=== PATIENT | female | born 1940 | race African-American/Black ===

== ENCOUNTER → 2020-10-27 08:54 | Outpatient (REF) | payer MEDICARE, OTHER, SELFPAY ==
--- NOTE | 2020-10-27 09:30 | CA_ITS ---
Transthoracic Echocardiogram Patient (Last, First, Middle): Shelley Graff A Gender: Female Date of : 1940 Age: 80 Procedure Date: 10/27/2020 Procedure Type: Transthoracic Echocardiogram Location: OP Height: 162.56 cm Weight: 44.45 kg BSA: 1.44 m2 Heart Rate: bpm BP: 132 / 72 mmHg Laboratory Secretary: Carl MD: Seferino Sandoval MD Green Jobs Trainer: Martínez Zhang MD Symptoms: PERICARDIAL EFFUSION Study Quality: Good ECG Rhythm: Sinus Conclusions: - 1. Normal LV systolic function with impaired relaxation filling pattern 2. Trivial aortic regurgitation and mild mitral regurgitation 3. Normal RV systolic pressure 4. No trivial pericardial effusion Findings Left Ventricle Normal left ventricular size, thickness, and systolic function. The visually estimated ejection fraction is between 60-65%. Spectral Doppler is indicative of an impaired relaxation filling pattern. E/E prime ratio is between 8 and 15 consistent with indeterminate filling pressures. Right Ventricle Normal right ventricular cavity size and systolic function. Atria Both atria are normal in size. There is no evidence of interatrial shunt. Aortic Valve There is mild calcification of the aortic valve. There is mild thickening of the aortic valve. There is no aortic valve stenosis. There is trace (trivial) aortic valve regurgitation. Mitral Valve There is mild anterior and posterior mitral leaflet thickening. There is mild mitral annular calcification. There is mild mitral valve regurgitation. There is no mitral valve stenosis. Pulmonic Valve The pulmonic valve was not well visualized. Tricuspid Valve Normal tricuspid valve structure. There is mild tricuspid valve regurgitation. The right ventricular systolic pressure is normal. The right ventricular systolic pressure is 35 mmHg. Normal right atrial pressure. There is no evidence of pulmonary hypertension. Great Vessels All visible segments of the aorta are normal in size. The pulmonary artery was not well visualized. Moderate plaque is seen in the sino tubular ridge. Venous The inferior vena cava is normal in size and collapses greater than 50% with inspiration. Pericardium/Pleural There is a trivial pericardial effusion. Prior Study Comparison No significant change compared to prior study dated: 10/23/2019. Measurements 2D Linear Measurements RVIDd: 2.81 RVIDd Index: 1.95 IVSd: 1.15 0.6-0.9/0.6-1.0 cm LVIDd: 4.10 3.9-5.3/4.2-5.9 cm LVIDd Index: 2.85 2.4-3.2/2.2-3.1 cm/m2 LVIDs: 2.20 2.0-3.6 cm LVPWd: 0.83 0.7-1.1 cm Ao Root: 2.60 2.1-3.5 cm LA Diam: 3.20 2.7-3.8/3.0-4.0 cm LAIDs Index: 2.22 1.5-2.3 cm/m2 LV Mass: 162.30 67-162/88-224 g LV Mass Index: 112.71 43-95/49-115 g/m2 LVOT Diam: 1.90 3.0+(-)1.3 cm 2D Systolic Function EF 4C: 55.10 >55% EF 2C: 63.80 >55% EF BiP: 61.30 >55% Mitral Valve MV Pk E: 0.57 MV PK A: 0.94 MV Decel Time: 277.00 E/A: 0.60 E'Lateral: 5.77 E'Medial: 3.59 E/E' Med: 16.00 E/E' Lat: 9.90 Aortic Valve AoV Pk Gurpreet: 1.68 AoV Mn Gurpreet: 1.18 AoV VTI: 0.34 AoV Pk Grad: 11.00 Aov Mn Grad: 6.00 RICKY Cont.VTI: 1.91 LVOT LVOT Pk Gurpreet: 1.02 LVOT Mn Gurpreet: 0.73 LVOT VTI: 0.23 LVOT Pk Grad: 4.00 LVOT Mn Grad: 2.00 LVOT Diam: 1.90 LVOT Area: 2.84 Diastolic Function MV Pk E: 0.57 MV Pk A: 0.94 E/A: 0.60 E'Medial: 3.59 E/E' Med: 16.00 E' Laterial: 5.77 E/E' Lat: 9.90 Right Ventricle TAPSE (mm): 20.00 TVS' Gurpreet: 11.10 Tricuspid Valve TR Pk Gurpreet: 2.85 TR Pk Grad: 32.00 RA Press: 3.00 RVSP: 35.00 Great Vessels Aorta Ao Root-2D: 2.60 2.0-3.7 cm Ao Asc: 3.00 2.1-3.4 cm Ao Arch: 2.00 Updated in Other Vendor System with Status of Final Martínez Zhang MD electronically signed on 10/28/2020 2:12:52 PM with status of Final
== END ==
LOC: HO.CARD 08:54
PROVIDERS: Visit Provider Internal Medicine
DX: I31.3 Pericardial effusion (noninflammatory) (principal)
CPT/HCPCS: 93306

== ENCOUNTER → 2020-11-05 10:34 | Outpatient (BNVA) | payer MEDICARE, OTHER, SELFPAY | PROVIDERS: PCP Physician Assistant Medical; Visit Provider Internal Medicine | DX: J44.9 Chronic obstructive pulmonary disease, unspecified (principal); R09.02 Hypoxemia; R91.8 Other nonspecific abnormal finding of lung field; Z85.118 Personal history of other malignant neoplasm of bronchus and lung | CPT/HCPCS: 99202 ==

== ENCOUNTER → 2020-11-11 08:22 | Outpatient (BNVA) | payer MEDICARE, OTHER, SELFPAY | PROVIDERS: PCP Internal Medicine; Referring Provider Physician Assistant Medical; Visit Provider Internal Medicine | DX: I25.10 Atherosclerotic heart disease of native coronary artery without angina pectoris (principal); I31.3 Pericardial effusion (noninflammatory); Z98.890 Other specified postprocedural states; Z86.79 Personal history of other diseases of the circulatory system | CPT/HCPCS: 93005; 99212 ==

== ENCOUNTER → 2020-11-16 09:59 | Outpatient (BNVA) | payer MEDICARE, OTHER, SELFPAY | PROVIDERS: PCP Internal Medicine; Visit Provider Internal Medicine ==

== ENCOUNTER 2020-12-02 07:44 | Outpatient (REF) | payer MEDICARE, OTHER, SELFPAY ==
[2020-12-02 08:33] LABS: Cholesterol 156 mg/dL; HDL Cholesterol 64 mg/dL; LDL Cholesterol Calculated 78 mg/dl; Triglycerides 70 mg/dL
== END 2020-12-02 07:45 | disposition home or self-care (01) ==
LOC: HO.LAB 07:44
PROVIDERS: PCP Physician Assistant Medical; Visit Provider Internal Medicine
DX: E78.5 Hyperlipidemia, unspecified (principal)
CPT/HCPCS: 36415; 80061

== ENCOUNTER → 2021-02-10 09:07 | Outpatient (BNVA) | payer MEDICARE, OTHER, SELFPAY | PROVIDERS: PCP Physician Assistant Medical; Visit Provider Internal Medicine | DX: J44.9 Chronic obstructive pulmonary disease, unspecified (principal); R91.8 Other nonspecific abnormal finding of lung field; R09.02 Hypoxemia; Z85.118 Personal history of other malignant neoplasm of bronchus and lung | CPT/HCPCS: 99212 ==

== ENCOUNTER → 2021-05-11 08:39 | Outpatient (BNVA) | payer MEDICARE, OTHER, SELFPAY | PROVIDERS: PCP Physician Assistant Medical; Referring Provider Physician Assistant Medical; Visit Provider Internal Medicine | DX: I25.10 Atherosclerotic heart disease of native coronary artery without angina pectoris (principal); I31.3 Pericardial effusion (noninflammatory); Z98.890 Other specified postprocedural states; Z86.79 Personal history of other diseases of the circulatory system | CPT/HCPCS: 99212 ==

== ENCOUNTER → 2021-06-14 08:55 | Outpatient (BNVA) | payer MEDICARE, OTHER, SELFPAY | PROVIDERS: PCP Physician Assistant Medical; Visit Provider Internal Medicine | DX: J44.9 Chronic obstructive pulmonary disease, unspecified (principal); R09.02 Hypoxemia; Z85.118 Personal history of other malignant neoplasm of bronchus and lung | CPT/HCPCS: 99212 ==

== ENCOUNTER 2021-10-09 11:06 | Emergency (ER) | payer MEDICARE, OTHER, SELFPAY ==
[2021-10-09 11:20] VITALS: BP 203/92; PULSE 93; RESP 16; O2SAT 99; BMI 18.5
--- NOTE | 2021-10-09 11:30 | PC.NURSE ---
Pt currently on 2L O2 [place]. In home oxygen supplier: [employer]. States home o2 generator is broken and will not have enough o2 to last throughout the weekend. EMS unable to contact [employer]. Respiratory aware and will contact [employer].
--- NOTE | 2021-10-09 11:31 | ED.GENADULT ---
HPI - General Adult General Chief complaint: General Medical Stated complaint: not feeling safe Time Seen by Provider: 10/09/21 11:31 Source: patient and EMS Mode of arrival: EMS Limitations: no limitations History of Present Illness HPI narrative: 80-year-old female came in by EMS after patient panicked and got anxious when her oxygen tank did a workup home today, patient is known COPD and lung malignancy, patient used 2 L of oxygen 24/7 have to oxygen tank at home and emergency small portable once, the tank did not deliver oxygen patient got anxious and panicked tried to call the company nobody answered because it's weekend did not know what to do called 911 who brought her to the hospital. patient in emergency room is calm, no acute distress, complaining of no shortness of breath or chest pain, patient stated that she is at her baseline get around at home. Related Data Home Medications Medication Instructions Recorded Confirmed aspirin 81 mg tablet,delayed 81 mg PO DAILY 11/05/20 05/11/21 release (Adult Aspirin Regimen) ferrous sulfate 325 mg (65 mg 325 mg PO DAILY 11/05/20 05/11/21 iron) tablet oxycodone-acetaminophen 7.5 mg-325 1 tab PO Q6H PRN 11/05/20 05/11/21 mg tablet albuterol sulfate 90 mcg/actuation 2 inh inhalation Q6H PRN 02/10/21 05/11/21 aerosol inhaler docusate sodium 100 mg capsule 100 mg PO BID PRN 02/10/21 05/11/21 Previous Rx's Medication Instructions Recorded alirocumab 75 mg/mL subcutaneous 75 mg subcut Q2W #7 mL 08/13/21 pen injector (Praluent Pen) Trelegy Ellipta 100 mcg-62.5 1 ea inhalation DAILY #180 ea 08/31/21 mcg-25 mcg powder for inhalation (bvwtnyisopu-wqkwaihmj-xgabgeip) albuterol sulfate 2.5 mg/3 mL 2.5 mg (3 mL) inhalation Q6H PRN 09/20/21 (0.083 %) solution for nebulization for wheezing #150 mL Allergies Allergy/AdvReac Type Severity Reaction Status Date / Time No Known Allergies Allergy Unknown NOT Verified 06/14/21 09:43 APPLICABLE Review of Systems Review of Systems: All other systems are reviewed and are negative Constitutional: Reports as per HPI and Reports no additional constitutional complaints Eyes: Reports as per HPI and Reports no additional eye complaints Reports system reviewed and no additional complaints, except as documented Cardiovascular: Reports as per HPI and Reports no additional cardiovascular complaints Respiratory: Reports as per HPI and Reports no additional respiratory complaints Gastrointestinal: Reports as per HPI and Reports no additional gastrointestinal complaints Genitourinary: Reports no additional female genitourinary complaints Musculoskeletal: Reports no additional musculoskeletal complaints Skin/Breast: Reports system reviewed and no additional complaints, except as docu Psychiatric: Reports no additional psychiatric complaints Endocrine: Reports no additional endocrine complaints Hematologic/Lymphatic: Reports no additional hematologic/lymphatic complaints Allergic/Immunologic: Reports no additional allergic/immunologic complaints Reports system reviewed and no additional complaints, except as documented and Reports Abnormal speech present FORMERLY [facility] Past Medical History Medical History COPD (chronic obstructive pulmonary disease) H/O malignant neoplasm of lung Hypoxemia Pulmonary nodules Surgical History Hx of mastectomy Family History Family History Father No problems noted. Mother CAD (coronary artery disease) Social History Social History Patient Tobacco Use Status: Former Tobacco user Years Smoked: 56 Advance Directives: No Advance Directives Information Provided: Yes Physical Exam ED Vital Signs: Vital Signs - 24 hr 10/09/21 11:20 Pulse Rate 93 Respiratory Rate 16 Blood Pressure 203/92 H Pulse Oximetry 99 Oxygen Delivery Method Nasal Cannula BMI result Body Mass Index 18.5 Vital signs have been reviewed as appeared to be correct. Blood pressure elevated. Heart rate normal. Respiration rate normal. Temperature normal. Oxygen saturation normal. Appearance: Alert. Oriented X3. No acute distress, thin built female Head: Normal external exam. Normocephalic. Atraumatic. No Mota signs noted. No raccoon eyes noted Eyes: PERRLA. EOMI. Conjunctiva and sclera normal. Eyelids normal. ENT: TM's Normal. Pharynx normal. Uvula midline. Moist mucous membranes. No trismus noted. No drooling noted. No muffled voice noted. Neck: Normal inspection. Neck supple. FROM. No adenopathy. Thyroid Normal. No meningeal signs. No neck mass noted. CVS: Normal heart rate and rhythm. Heart sound normal. No murmurs noted. Pulses normal throughout. Respiratory: No respiratory distress. Painless inspiration. Breath sounds normal. No wheezes/rales/rhonchi noted. Chest nontender. No accessory muscle usage noted or decreased air movement noted. Abdomen: Soft and nontender. Bowel sounds normal in all 4 quadrants. No distention noted. No organomegaly noted. No visible injury noted. Back: No CVA tenderness. Full range of motion noted. Skin: Skin warm and dry. Normal skin color. Normal skin turgor. No rashes/lesions/lacerations noted. Extremities: No lower extremity edema. Extremities exhibit normal range of motion. Extremities nontender. Neuro: Oriented X 3. Cranial nerve exam: II-XII are grossly intact No motor deficit. No sensory deficit. Reflexes normal. Course Course Course Narrative: 80-year-old female has problem with her oxygen tank at home, patient became anxious when could not get the tank work, patient tried to call the [employer] then called 911 and came to the ED patient has no medical complaints just concerned about her oxygen tank, respiratory therapist was involved and was able to contact the [employer] who will send a arcade game technician to her house and look at the problem at the meantime patient will be provided a full oxygen tank from the hospital. Discharge Plan Discharge Clinical Impression: Supplemental oxygen dependent, Encounter for medical screening examination Patient Disposition: Home, Self-Care Instructions: Using Oxygen at Home (ED) Prescriptions: No Action Praluent Pen 75 mg/mL pen injector 75 mg subcut Q2W Qty: 7 3RF Rx Instructions: inject into abdomen, thigh, or upper arm (deltoid muscle); rotate sites Trelegy Ellipta 100-62.5-25 mcg blister with device 1 ea inhalation DAILY Qty: 180 4RF albuterol sulfate 2.5 mg /3 mL (0.083 %) solution for nebulization 2.5 mg inhalation Q6H PRN (Reason: for wheezing) Qty: 150 0RF ferrous sulfate 325 mg (65 mg iron) tablet 325 mg PO DAILY aspirin [Adult Aspirin Regimen] 81 mg tablet,delayed release (DR/EC) 81 mg PO DAILY oxycodone-acetaminophen 7.5-325 mg tablet 1 tab PO Q6H PRN albuterol sulfate 90 mcg/actuation HFA aerosol inhaler 2 inh inhalation Q6H PRN docusate sodium 100 mg capsule 100 mg PO BID PRN Referrals: Aiden Eli PA [Primary Care Provider] -
--- NOTE | 2021-10-09 12:03 | PC.NURSE ---
Respiratory at bedside.
== END 2021-10-09 12:38 | disposition home or self-care (01) ==
PROVIDERS: Emergency Provider Emergency Medicine; PCP Physician Assistant Medical
DX: J44.9 Chronic obstructive pulmonary disease, unspecified (principal); Z99.81 Dependence on supplemental oxygen; F41.9 Anxiety disorder, unspecified; C34.90 Malignant neoplasm of unspecified part of unspecified bronchus or lung; Z79.82 Long term (current) use of aspirin
CPT/HCPCS: 99284

== ENCOUNTER → 2021-11-03 08:33 | Outpatient (BNVA) | payer MEDICARE, OTHER, SELFPAY | PROVIDERS: PCP Physician Assistant Medical; Referring Provider Physician Assistant Medical; Visit Provider Internal Medicine | DX: I25.10 Atherosclerotic heart disease of native coronary artery without angina pectoris (principal); I31.3 Pericardial effusion (noninflammatory); I10 Essential (primary) hypertension; E78.5 Hyperlipidemia, unspecified; Z86.79 Personal history of other diseases of the circulatory system; Z79.82 Long term (current) use of aspirin; Z79.899 Other long term (current) drug therapy | CPT/HCPCS: 93005; 99212 ==

== ENCOUNTER 2021-11-05 08:14 | Outpatient (REF) | payer MEDICARE, OTHER, SELFPAY ==
[2021-11-05 09:14] LABS: Cholesterol 144 mg/dL; HDL Cholesterol 57 mg/dL; LDL Cholesterol Calculated 75 mg/dl; Triglycerides 61 mg/dL
== END 2021-11-05 08:15 | disposition home or self-care (01) ==
LOC: HO.LAB 08:14
PROVIDERS: Visit Provider Internal Medicine
DX: I25.10 Atherosclerotic heart disease of native coronary artery without angina pectoris (principal); E78.5 Hyperlipidemia, unspecified
CPT/HCPCS: 36415; 80061

== ENCOUNTER → 2021-12-20 08:48 | Outpatient (BNVA) | payer MEDICARE, OTHER, SELFPAY | PROVIDERS: PCP Physician Assistant Medical; Visit Provider Internal Medicine | DX: J44.9 Chronic obstructive pulmonary disease, unspecified (principal); R09.02 Hypoxemia; R91.8 Other nonspecific abnormal finding of lung field; Z85.118 Personal history of other malignant neoplasm of bronchus and lung | CPT/HCPCS: 99212 ==

== ENCOUNTER → 2022-06-20 08:59 | Outpatient (BNVA) | payer MEDICARE, OTHER, SELFPAY | PROVIDERS: PCP Physician Assistant Medical; Visit Provider Internal Medicine | DX: J44.9 Chronic obstructive pulmonary disease, unspecified (principal); R09.02 Hypoxemia; R91.8 Other nonspecific abnormal finding of lung field; Z99.81 Dependence on supplemental oxygen; Z79.899 Other long term (current) drug therapy; Z85.118 Personal history of other malignant neoplasm of bronchus and lung | CPT/HCPCS: 99212 ==

== ENCOUNTER → 2022-06-22 08:26 | Outpatient (BNVA) | payer MEDICARE, OTHER, SELFPAY | PROVIDERS: PCP Physician Assistant Medical; Referring Provider Physician Assistant Medical; Visit Provider Internal Medicine | DX: I25.10 Atherosclerotic heart disease of native coronary artery without angina pectoris (principal); I10 Essential (primary) hypertension; E78.5 Hyperlipidemia, unspecified; Z86.79 Personal history of other diseases of the circulatory system; Z79.82 Long term (current) use of aspirin; Z79.899 Other long term (current) drug therapy | CPT/HCPCS: 99212 ==

== ENCOUNTER 2022-12-19 08:10 | Outpatient (AMB) | payer MEDICARE, OTHER, SELFPAY ==
[2022-12-19 08:54] VITALS: BP 130/70; PULSE 78; O2SAT 100; BMI 16.3
--- NOTE | 2022-12-19 08:54 | MHC.OFFVIS ---
Intake Vital Signs 12/19/22 08:54 Height 5 ft 4 in Weight 95 lb BMI 16.3 BP 130/70 Blood Pressure Location Rt brachial Pulse 78 Pulse Source Pulse Oximeter Pulse Oximetry (%) 100 Oxygen Delivery Method Nasal Cannula Oxygen Flow Rate 2 Intake Visit Reasons: COPD Intake Note: pt is here for follow up and states she is okay with here breathing Milieu Technician Required: No Allergies No Known Allergies Allergy (Unknown, Verified 12/19/22 09:09) NOT APPLICABLE Medication List - Last Reconciled 12/19/22 by Josi Jean MD albuterol sulfate 90 mcg/actuation 2 inhalations inhalation Q6H PRN albuterol sulfate 2.5 mg (3 mL) inhalation Q6H PRN alirocumab (Praluent Pen) 75 mg subcut Q2W amlodipine 2.5 mg PO DAILY ascorbic acid (vitamin C) mg PO aspirin (Adult Aspirin Regimen) 81 mg PO DAILY ferrous sulfate 325 mg PO DAILY food supplemt, lactose-reduced (Ensure oral liquid) ea PO multivitamin (Daily Multi-Vitamin tablet) 1 tab PO DAILY oxycodone-acetaminophen 7.5-325 mg 1 tab PO Q6H PRN Trelegy Ellipta 100-62.5-25 mcg ([id number]-itgsmvrve-[id number]) 1 ea inhalation DAILY NS Do you need a note to return to daycare/school/sports/work: No HPI COPD HPI Details 82 years old, very pleasant female of a thin build, comes after 4 months for follow-up. She is a case of advanced chronic obstructive pulmonary disease. Has remained very stable in the last 4 months., without any acute exacerbation She is on oxygen 2 L/minute 24 hours a day. She has a small B cylinder for portability, which she can carry easily but it does not lost more than couple hours. Luckily she has had no chest infection. She tries to eat but can eat only in small portions and has not gained any weight. [facility] Medical History H/O malignant neoplasm of lung Pulmonary nodules Hypoxemia COPD (chronic obstructive pulmonary disease) Surgical History Hx of mastectomy Family History Father No problems noted. Mother CAD (coronary artery disease) Social History Patient Tobacco Use Status: Former Tobacco user Years Smoked: 56 Review of Systems Const All systems reviewed & are unremarkable except as noted in HPI and below Eyes Reports no additional complaints ENT Reports no additional complaints Card Denies chest pain, Denies irregular heart rhythm and Denies leg edema Resp Reports as per HPI GI Reports no additional complaints and Reports other (APPETITE REMAINS POOR, SHE IS EATING MOSTLY FROZEN DINNERS) Reports no additional complaints Musc Reports no additional complaints Skin/Breast Reports system reviewed and no additional complaints, except as documented Neuro Reports no additional complaints Psych Reports no additional complaints Physical Exam Vital Signs: Last Vital Signs Pulse 78 12/19/22 08:54 BP 130/70 12/19/22 08:54 Pulse Ox 100 12/19/22 08:54 Oxygen Delivery Method Nasal Cannula 12/19/22 08:54 Oxygen Flow Rate 2 12/19/22 08:54 BMI result Body Mass Index 16.3 Const General: comfortable, no acute distress, alert and awake Orientation/consciousness: patient oriented x3 HEENT Head: Yes normal to inspection General nose exam: No nasal polyps present and No nasal discharge present Face and sinus: Yes sinuses nontender Mouth: oropharynx normal Throat: Yes posterior oropharynx normal Eyes General: appearance normal, both eyes and all related structures Neck Neck: Yes normal visual inspection, Yes no lymphadenopathy, Yes trachea midline and Yes no JVD Thyroid: Thyroid normal Chest Chest palpation & inspection: normal inspection of the chest, normal palpation of entire chest wall and no tenderness Resp Other: PERCUSSION NOTE HYPER-RESONANT, BREATH SOUNDS ARE DISTANT WITH PROLONGED EXPIRATORY PHASE ON BOTH SIDES. NO WHEEZES RHONCHI OR CREPITATIONS ARE HEARD. Cardio Palpation: normal PMI Rate: regular rate Rhythm: regular rhythm Heart sounds: no gallops and no murmurs GI Palpation (GI): Soft to palpation, nontender, No hepatosplenomegaly present and no masses Auscultation: normal bowel sounds Back/Spine/Pelvis Thoracic/Lumbar Spine: thoracic and lumbar spine normal to inspection Skin General skin exam: no rashes or lesions noted Neuro General: patient oriented x3 and no focal motor deficits Cranial nerves: Yes CN's II-XII intact bilaterally Extrem General: Yes normal to inspection, Yes no clubbing, cyanosis or edema and Yes no calf tenderness Psych Appearance: grossly normal and well kempt Speech and movement: Normal speech and movement present Assessment & Plan Assessment & Plan (1) H/O malignant neoplasm of lung: Comment: Patient was found to have a malignant nodule in left upper lobe in 2017, Has been treated with full course of radiation therapy. Patient is a poor surgical risk because of her end-stage chronic obstructive pulmonary disease . She is being followed by the oncology service at [facility] . Code(s): Z85.118 - Personal history of other malignant neoplasm of bronchus and lung (2) Pulmonary nodules: Comment: CT scans have shown new nodular lesions. 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 Patient is being followed by oncology service at [facility]. Code(s): R91.8 - Other nonspecific abnormal finding of lung field (3) COPD (chronic obstructive pulmonary disease): Comment: This patient has rather advanced degree of chronic obstructive pulmonary disease. Clinically it is relatively stable at this time. [place] :Advised to cont. Trelegy 1 inhalation daily. And albuterol HFA 2 puffs Q 4-6 hours p.r.n. Or alternatively she may use albuterol sulfate in the nebulizer q.6 hours p.r.n.( AVOID USING TOO FREQUENTLY ) Code(s): J44.9 - Chronic obstructive pulmonary disease, unspecified (4) Hypoxemia: Comment: Patient has Resting as well as Nocturnal hypoxemia. She will continue using oxygen 2 L/minute on continuous basis. May increase to 3 L/minute if she has any increased shortness of breath Code(s): R09.02 - Hypoxemia Coding Level of Care Code Est Pt Level 3 (42675) Diagnoses H/O malignant neoplasm of lung Z85.118 Pulmonary nodules R91.8 COPD (chronic obstructive pulmonary disease) J44.9 Hypoxemia R09.02
== END 2022-12-19 09:11 | disposition home or self-care (01) ==
LOC: HO.HPS 08:11
PROVIDERS: PCP Physician Assistant Medical; Visit Provider Internal Medicine
DX: Z85.118 Personal history of other malignant neoplasm of bronchus and lung (principal); R91.8 Other nonspecific abnormal finding of lung field; J44.9 Chronic obstructive pulmonary disease, unspecified; R09.02 Hypoxemia
CPT/HCPCS: 99213

== ENCOUNTER → 2022-12-19 08:10 | Outpatient (BNVA) | payer MEDICARE, OTHER, SELFPAY | PROVIDERS: Visit Provider Internal Medicine | DX: J44.9 Chronic obstructive pulmonary disease, unspecified (principal); R91.8 Other nonspecific abnormal finding of lung field; R09.02 Hypoxemia; Z87.891 Personal history of nicotine dependence; Z85.118 Personal history of other malignant neoplasm of bronchus and lung; Z99.81 Dependence on supplemental oxygen | CPT/HCPCS: 99212 ==

== ENCOUNTER 2023-03-01 10:36 | Outpatient (AMB) | payer MEDICARE, OTHER, SELFPAY ==
--- NOTE | 2023-03-01 10:37 | MHC.OFFVIS ---
Intake Vital Signs 03/01/23 10:43 Height 5 ft 4 in Weight 97 lb 0.054 oz BMI 16.6 BP 126/74 Blood Pressure Location Rt brachial Position Sitting Pulse 93 Intake Visit Reasons: pt r/s- 6 month follow up Intake Note: 6 month follow up Laboratory Inspector Required: No Accompanied by: Self / Same As Patient Allergies No Known Allergies Allergy (Unknown, Verified 03/01/23 10:44) NOT APPLICABLE Medication List - Last Reconciled 03/01/23 by Seferino Sandoval MD albuterol sulfate 90 mcg/actuation 2 inhalations inhalation Q6H PRN albuterol sulfate 2.5 mg (3 mL) inhalation Q6H PRN alirocumab (Praluent Pen) 75 mg subcut Q2W amlodipine 2.5 mg PO DAILY ascorbic acid (vitamin C) mg PO aspirin (Adult Aspirin Regimen) 81 mg PO DAILY ferrous sulfate 325 mg PO DAILY food supplemt, lactose-reduced (Ensure oral liquid) ea PO multivitamin (Daily Multi-Vitamin tablet) 1 tab PO DAILY oxycodone-acetaminophen 7.5-325 mg 1 tab PO Q6H PRN Trelegy Ellipta 100-62.5-25 mcg (ztzwrhabjjj-nrlieqofj-[id number]) 1 ea inhalation DAILY NS HPI HPI Comments History of Present Illness Details Shelley returns for follow-up regarding vascular disease. She has a history of advanced COPD on home oxygen. She also has history of lung cancer. She does not have any chest pain or in fact any other cardiac symptoms. Chronic shortness of breath is just about the same as before. She is also on supplemental oxygen. [facility] Medical History H/O malignant neoplasm of lung Pulmonary nodules Hypoxemia COPD (chronic obstructive pulmonary disease) Surgical History Hx of mastectomy Family History Father No problems noted. Mother CAD (coronary artery disease) Social History Patient Tobacco Use Status: Former Tobacco user Years Smoked: 56 Review of Systems Const Denies weakness ENT Denies dizziness Card Denies chest pain, Denies chest pain with activity, Denies syncope, Denies rapid heart rate, Denies pedal edema, Denies edema, Denies leg edema, Denies lightheadedness, Denies palpitations, Denies dyspnea, Denies dyspnea on exertion and Denies orthopnea Resp Denies cough, Denies dyspnea and Denies dyspnea on exertion GI Denies hematochezia and Denies change in stool character Musc Denies abnormal gait, Denies muscle cramps, Denies muscle weakness, Denies numbness, Denies radiating pain into limb and Denies tingling Neuro Denies abnormal gait, Denies dizziness, Denies syncope, Denies numbness, Denies tingling and Denies weakness Endo Denies palpitations Physical Exam Vital Signs: Last Vital Signs Pulse 93 03/01/23 10:43 BP 126/74 03/01/23 10:43 BMI result Body Mass Index 16.6 Const General: comfortable and no acute distress Orientation/consciousness: patient oriented x3 HEENT Other: Unremarkable Head: Yes normal to inspection Neck Neck: Yes normal visual inspection Chest Chest palpation & inspection: normal inspection of the chest Resp Auscultation: rhonchi and diminished lung sounds Cardio Palpation: normal PMI Heart sounds: S1 normal heart sound present, S2 normal heart sound present, no gallops, no murmurs and no rubs GI Palpation (GI): Soft to palpation Back/Spine/Pelvis Other: unremarkable Skin General skin exam: no rashes or lesions noted Neuro General: patient oriented x3 Extrem General: Yes normal to inspection Psych Mental Status: mental status grossly normal Office Procedures EKG Details: EKG with sinus rhythm at 93/Min; anterolateral T inversions. [id number], Complete Assessment & Plan Assessment & Plan (1) Atherosclerotic cardiovascular disease: Code(s): I25.10 - Atherosclerotic heart disease of [place] coronary artery without angina pectoris Plan: Cardiac catheterization in 2013 showed nonobstructive disease in right coronary artery, but no significant disease elsewhere. She has some T inversions on EKG today, but clinically she has got absolutely no symptoms. She has high risk for coronary disease but she is also high risk for any form of testing and definitely not suitable for any stress testing. In the absence of symptoms, continue to manage conservatively. Remain on aspirin only. If any occurrence of angina, advised to contact us and we discussed about this at length today including rationale. (2) Status post abdominal aortic aneurysm repair: Code(s): Z98.890 - Other specified postprocedural states; Z86.79 - Personal history of other diseases of the circulatory system Plan: Status post endovascular repair. Follows at [facility] vascular surgery. (3) Essential hypertension: Code(s): I10 - Essential (primary) hypertension Plan: Stable. No changes. (4) Other and unspecified hyperlipidemia: Code(s): E78.5 - Hyperlipidemia, unspecified Plan: On Praluent. LDL 75 mg/dL. Triglycerides 61 mg/dL (5) Pericardial effusion: Code(s): I31.3 - Pericardial effusion (noninflammatory) Plan: Resolved on the last echocardiogram. Coding Level of Care Code Est Pt Level 4 (75503) Diagnoses Atherosclerotic cardiovascular disease I25.10 Status post abdominal aortic aneurysm repair Z98.890; Z86.79 Essential hypertension I10 Other and unspecified hyperlipidemia E78.5 Pericardial effusion I31.3 CPT Codes EKG - CPT: 61766-[id number], Complete ([id number])
[2023-03-01 10:43] VITALS: BP 126/74; PULSE 93; BMI 16.6
== END 2023-03-01 11:01 | disposition home or self-care (01) ==
PROVIDERS: PCP Physician Assistant Medical; Visit Provider Internal Medicine
DX: I25.10 Atherosclerotic heart disease of native coronary artery without angina pectoris (principal); Z98.890 Other specified postprocedural states; Z86.79 Personal history of other diseases of the circulatory system; I10 Essential (primary) hypertension; E78.5 Hyperlipidemia, unspecified; I31.39 Other pericardial effusion (noninflammatory)
CPT/HCPCS: 93010; 99214

== ENCOUNTER → 2023-03-01 10:36 | Outpatient (BNVA) | payer MEDICARE, OTHER, SELFPAY | PROVIDERS: PCP Physician Assistant Medical; Visit Provider Internal Medicine | DX: I25.10 Atherosclerotic heart disease of native coronary artery without angina pectoris (principal); I31.39 Other pericardial effusion (noninflammatory); I10 Essential (primary) hypertension; E78.5 Hyperlipidemia, unspecified; Z86.79 Personal history of other diseases of the circulatory system; Z98.890 Other specified postprocedural states | CPT/HCPCS: 93005; 99212 ==

== ENCOUNTER 2023-04-24 08:24 | Outpatient (AMB) | payer MEDICARE, OTHER, SELFPAY ==
[2023-04-24 08:47] VITALS: BP 122/70; PULSE 90; RESP 14; O2SAT 97; BMI 16.2
--- NOTE | 2023-04-24 08:47 | MHC.OFFVIS ---
Intake Vital Signs 04/24/23 08:47 Height 5 ft 4 in Weight 94 lb 8 oz BMI 16.2 BP 122/70 Blood Pressure Location Rt brachial Position Sitting Respiration 14 Pulse 90 Pulse Source Pulse Oximeter Pulse Oximetry (%) 97 Oxygen Delivery Method Room Air Intake Visit Reasons: COPD Allergies No Known Allergies Allergy (Unknown, Verified 04/24/23 08:51) NOT APPLICABLE Medication List - Last Reconciled 04/24/23 by Josi Jean MD albuterol sulfate 90 mcg/actuation 2 inhalations inhalation Q6H PRN albuterol sulfate 2.5 mg (3 mL) inhalation Q6H PRN alirocumab (Praluent Pen) 75 mg subcut Q2W amlodipine 2.5 mg PO DAILY ascorbic acid (vitamin C) mg PO aspirin (Adult Aspirin Regimen) 81 mg PO DAILY ferrous sulfate 325 mg PO DAILY food supplemt, lactose-reduced (Ensure oral liquid) ea PO multivitamin (Daily Multi-Vitamin tablet) 1 tab PO DAILY oxycodone-acetaminophen 7.5-325 mg 1 tab PO Q6H PRN Trelegy Ellipta 100-62.5-25 mcg (lcxusuvckwi-ensexatmr-wjucaztg) 1 ea inhalation DAILY NS Do you need a note to return to daycare/school/sports/work: No HPI COPD HPI Details 82 years old very pleasant female of a thin build with advanced COPD and history of lung cancer, which has been treated. She comes after 4 months for her routine follow-up. She has had no new development, no new infection, and her respiratory status has remained very stable. She eats only in small portions and weight has not changed much. For portability she has B-cylinder, but she would like to get POC. Unit for convenience and so that it can lost long. [facility] Medical History H/O malignant neoplasm of lung Pulmonary nodules Hypoxemia COPD (chronic obstructive pulmonary disease) Surgical History Hx of mastectomy Family History Father No problems noted. Mother CAD (coronary artery disease) Social History Patient Tobacco Use Status: Former Tobacco user Years Smoked: 56 Review of Systems Const All systems reviewed & are unremarkable except as noted in HPI and below Eyes Reports no additional complaints ENT Reports no additional complaints Card Denies chest pain, Denies irregular heart rhythm and Denies leg edema Resp Reports as per HPI GI Reports no additional complaints and Reports other (APPETITE REMAINS POOR, SHE IS EATING MOSTLY FROZEN DINNERS) Reports no additional complaints Musc Reports no additional complaints Skin/Breast Reports system reviewed and no additional complaints, except as documented Neuro Reports no additional complaints Psych Reports no additional complaints Physical Exam Vital Signs: Last Vital Signs Pulse 90 04/24/23 08:47 Resp 14 04/24/23 08:47 BP 122/70 04/24/23 08:47 Pulse Ox 97 04/24/23 08:47 Oxygen Delivery Method Room Air 04/24/23 08:47 BMI result Body Mass Index 16.2 Const General: comfortable, no acute distress, alert and awake Orientation/consciousness: patient oriented x3 HEENT Head: Yes normal to inspection General nose exam: No nasal polyps present and No nasal discharge present Face and sinus: Yes sinuses nontender Mouth: oropharynx normal Throat: Yes posterior oropharynx normal Eyes General: appearance normal, both eyes and all related structures Neck Neck: Yes normal visual inspection, Yes no lymphadenopathy, Yes trachea midline and Yes no JVD Thyroid: Thyroid normal Chest Chest palpation & inspection: normal inspection of the chest, normal palpation of entire chest wall and no tenderness Resp Other: PERCUSSION NOTE HYPER-RESONANT, BREATH SOUNDS ARE DISTANT WITH PROLONGED EXPIRATORY PHASE ON BOTH SIDES. NO WHEEZES RHONCHI OR CREPITATIONS ARE HEARD. Cardio Palpation: normal PMI Rate: regular rate Rhythm: regular rhythm Heart sounds: no gallops and no murmurs GI Palpation (GI): Soft to palpation, nontender, No hepatosplenomegaly present and no masses Auscultation: normal bowel sounds Back/Spine/Pelvis Thoracic/Lumbar Spine: thoracic and lumbar spine normal to inspection Skin General skin exam: no rashes or lesions noted Neuro General: patient oriented x3 and no focal motor deficits Cranial nerves: Yes CN's II-XII intact bilaterally Extrem General: Yes normal to inspection, Yes no clubbing, cyanosis or edema and Yes no calf tenderness Psych Appearance: grossly normal and well kempt Speech and movement: Normal speech and movement present Office Procedures 6 Minute Walk Time:: 09:00 SPO2 % at rest: 95 Pulse at rest: 91 SPO2 % during excercise: 85 Pulse during excercise: 101 SPO2 % after excercise: 97 Pulse after excercise: 98 Distance in yards walked: 120 Juan Luis Score: 2 Performance Observations:: Loco walked on level ground without assistance, she walked for 20 yards before her SPO2 decreased to 85% on room air. O2 started on setting #2 and her O2 increased to 94% with exertion her SPO2 dropped to 86% on setting#3 and recovered to 98% on setting #4 pulsed O2 [id number] - 6 Minute Walk Results Reviewed Results Reviewed: TESTED FOR POC. Assessment & Plan Assessment & Plan (1) COPD (chronic obstructive pulmonary disease): Comment: This patient has rather advanced degree of chronic obstructive pulmonary disease. Clinically it is relatively stable at this time. Or alternatively she may use albuterol sulfate in the nebulizer q.6 hours p.r.n.( AVOID USING TOO FREQUENTLY ) Code(s): J44.9 - Chronic obstructive pulmonary disease, unspecified Plan: TX :Advised to cont. Trelegy 1 inhalation daily. And albuterol HFA 2 puffs Q 4-6 hours p.r.n. ALTERNATELY may use Albuterol solution in Nebulizer (2) Hypoxemia: Comment: Patient has Resting as well as Nocturnal hypoxemia. She will continue using oxygen 2 L/minute on continuous basis. May increase to 3 L/minute if she has any increased shortness of breath Code(s): R09.02 - Hypoxemia Plan: Patient is requesting to have POC for convenience of portability, and also so that she can be going outdoors for longer periods. She was the tested in the office and qualifies for having a POC at O2 3-4 L/minute. We will request the DME provider to see if they can get her POC unit. (3) H/O malignant neoplasm of lung: Comment: Patient was found to have a malignant nodule in left upper lobe in 2017, Has been treated with full course of radiation therapy. Patient is a poor surgical risk because of her end-stage chronic obstructive pulmonary disease . She is being followed by the oncology service at [facility] . Code(s): Z85.118 - Personal history of other malignant neoplasm of bronchus and lung Plan: Patient is stable and he will continue to follow-up with the oncology service at [facility]. Orders: Orders AMB 6 minute walk Today J44.9 - Chronic obstructive pulmonary disease, unspecified Coding Level of Care Code Est Pt Level 3 (34833) Diagnoses COPD (chronic obstructive pulmonary disease) J44.9 Hypoxemia R09.02 H/O malignant neoplasm of lung Z85.118 CPT Codes Coding ([id number])
[2023-04-24 09:13] VITALS: PULSE 91; O2SAT 95
== END 2023-04-24 09:00 | disposition home or self-care (01) ==
PROVIDERS: PCP Physician Assistant Medical; Visit Provider Internal Medicine
DX: J44.9 Chronic obstructive pulmonary disease, unspecified (principal); R09.02 Hypoxemia; Z85.118 Personal history of other malignant neoplasm of bronchus and lung
CPT/HCPCS: 94618; 99213

== ENCOUNTER → 2023-04-24 08:24 | Outpatient (BNVA) | payer MEDICARE, OTHER, SELFPAY | PROVIDERS: PCP Physician Assistant Medical; Visit Provider Internal Medicine | DX: J44.9 Chronic obstructive pulmonary disease, unspecified (principal); R09.02 Hypoxemia; Z85.118 Personal history of other malignant neoplasm of bronchus and lung | CPT/HCPCS: 94618; 99212 ==

== ENCOUNTER 2023-04-30 09:21 | Inpatient (IN) | payer MEDICARE, OTHER, SELFPAY ==
[2023-04-30] VITALS (24 sets, daily range): BP systolic 112–141; BP diastolic 62–99; PULSE 82–131; RESP 13–33; TEMP 36.7–37; O2SAT 92–100; BMI 18.1
--- NOTE | ~2023-04-30 | CT_ITS ---
EXAMINATION: CT CHEST WITHOUT CONTRAST CLINICAL INFORMATION: Shortness of breath. Pneumothorax. COMPARISON: Radiographs the same day TECHNIQUE: Multidetector volumetric CT imaging of the chest was done. Axial MIP volume rendering provided. Sagittal and coronal reformatted images were obtained. This CT examination was performed using dose optimization techniques as appropriate, variously including the following: *Automated exposure control *Adjustment of mA and/or kV according to patient size (this includes techniques or standardized protocols for targeted exams where dose is matched to indication/reason for exam; i.e. extremities or head) *Use of iterative reconstruction technique DLP: 157 mGy-cm FINDINGS: FACILITIES COORDINATOR: Similar to recent radiograph LUNGS: There is a soft tissue circumferential pneumothorax confirmed within the right hemithorax. There is advanced emphysema with large bullous changes upper lung zones. Since baseline CT scan 02/28/2028 13, there is a new area of masslike consolidation right upper lobe extending to the apex. There is bronchial narrowing at this level. This represents a postobstructive phenomena due to endobronchial lesion not excluded. Stable similar but less prominent area of scarring or atelectasis left upper lobe. Extensive fiber calcific changes noted favoring sequelae of old granulomatous disease. MEDIASTINUM: Unchanged. Severe atherosclerosis and similar degree of generalized ectasia of the thoracic aorta. CORONARY ARTERY CALCIFICATION: Present PLEURA: Trace layering pleural effusion right base. AXILLA: No lymphadenopathy. UPPER ABDOMEN: There were no 5 from stent partially imaged. Granulomas noted throughout the spleen. Renal cortical cyst partially imaged. No adrenal lesion. Hepatic granulomata noted as well. OSSEOUS STRUCTURES: Unremarkable. CT/CT chest wo IV con IMPRESSION: 1. Right-sided hydropneumothorax confirmed. 2. Masslike consolidation right upper lobe with bronchial narrowing. This may be related to postobstructive phenomena due to endobronchial lesion not excluded. Pulmonary medicine consultation revised. 3. Advanced emphysema. 4. Evidence of old granulomatous disease. Fleischner guidelines were followed.
--- NOTE | ~2023-04-30 | XR_ITS ---
EXAMINATION: XR CHEST CLINICAL INFORMATION: SOB COMPARISON: CT chest 02/27/2018 TECHNIQUE: Frontal view of the chest was obtained. FINDINGS: There is diffuse emphysema. There is a loculated right pneumothorax with chronic scarring throughout the entire right lung and left upper lobe. There is mild right apical pleural thickening. There are post surgical lazarus in the left axilla with left mastectomy changes heart size is normal. Pulmonary vascularity is normal. No gross bony abnormality seen. XR/XR chest 1V IMPRESSION: 1. Diffuse emphysema with chronic scarring throughout the right lung and left upper lobe. 2. There is a loculated right basilar pneumothorax. 3. There is left mastectomy changes. 4. There is no acute consolidation.
--- NOTE | 2023-04-30 09:27 | ECG_ITS ---
Test Reason : sob Blood Pressure : / mmHG Vent. Rate : 112 BPM Atrial Rate : 112 BPM P-R Int : 174 ms QRS Dur : 084 ms QT Int : 322 ms P-R-T Axes : 069 076 086 degrees QTc Int : 439 ms Baseline wander Sinus tachycardia ST & T wave abnormality, consider lateral ischemia Abnormal ECG When compared with ECG of 24-APR-2016 13:42, Nonspecific T wave abnormality no longer evident in Inferior leads Referred By: Sofie Birmingham Electronically Signed By:AYSE LIU MD
--- NOTE | 2023-04-30 09:36 | ED_ITS ---
HPI - SOB/Dyspnea General Chief Complaint: Dyspnea Stated Complaint: sob,home o2, 94% on duoneb per ems Time Seen by Provider: 04/30/23 09:23 Source: patient and EMS Mode of arrival: EMS Limitations: no limitations History of Present Illness HPI Narrative: Patient is an 82 old female who presents emergency department via EMS for evaluation of shortness of breath with onset this morning no relief from home nebulizer/inhaler, she has a history of COPD and uses O2 via nasal cannula at 2 L baseline. Remote history of tobacco use reportedly quit 20-25 years ago. Denies any recent sick contacts. Denies fevers, chills, neck pain, dizziness, nausea vomiting, abdominal pain, numbness or tingling of the extremities, or extremity redness or swelling. Related Data Home Medications Medication Instructions Recorded Confirmed aspirin 81 mg tablet,delayed 81 mg PO DAILY 11/05/20 04/30/23 release (Adult Aspirin Regimen) ferrous sulfate 325 mg (65 mg 325 mg PO DAILY 11/05/20 04/30/23 iron) tablet oxycodone-acetaminophen 7.5 mg-325 1 tab PO Q6H PRN Pain 11/05/20 04/30/23 mg tablet multivitamin (Daily Multi-Vitamin 1 tab PO DAILY 06/22/22 04/30/23 tablet) ascorbic acid (vitamin C) 500 mg 500 mg PO DAILY 12/19/22 04/30/23 capsule food supplemt, lactose-reduced 1 ea PO TID 04/30/23 04/30/23 (Ensure Original oral liquid) Previous Rx's Medication Instructions Recorded amlodipine 2.5 mg tablet 2.5 mg PO DAILY #90 tabs 10/04/22 Trelegy Ellipta 100 mcg-62.5 1 ea inhalation DAILY #180 ea 11/14/22 mcg-25 mcg powder for inhalation (kzdkhsdkejs-befiggygn-uexgzzew) albuterol sulfate 2.5 mg/3 mL 2.5 mg (3 mL) inhalation Q6H PRN 02/14/23 (0.083 %) solution for nebulization shortness of breath or wheezing #120 ea albuterol sulfate 90 mcg/actuation 2 inh inhalation Q6H PRN shortness 04/24/23 aerosol inhaler of breath or wheezing 30 days #8.5 grams alirocumab 75 mg/mL subcutaneous 75 mg subcut Q2W #7 mL 04/28/23 pen injector (Praluent Pen) Allergies Allergy/AdvReac Type Severity Reaction Status Date / Time No Known Allergies Allergy Unknown NOT Verified 04/30/23 09:32 APPLICABLE Review of Systems 2 Review of Systems: Yes all other systems are reviewed and are negative FORMERLY [facility] Past Medical History Attestation statement: The following information was validated with the patient. Source: old records reviewed Medical History H/O malignant neoplasm of lung Pulmonary nodules Hypoxemia COPD (chronic obstructive pulmonary disease) Surgical History Hx of mastectomy Family History Family History Father No problems noted. Mother CAD (coronary artery disease) Social History Social History Patient Tobacco Use Status: Former Tobacco user Years Smoked: 56 Smoked in Last 30 Days: No Use of substances other than those prescribed or required for medical reasons: No Advance Directives: No Advance Directives Information Provided: No Physical Exam 2 Vital Signs: Vital Signs: Last Vital Signs Temp 98.0 F 04/30/23 17:09 Pulse 112 H 04/30/23 17:09 Resp 18 04/30/23 17:09 BP 130/84 04/30/23 17:09 Pulse Ox 98 04/30/23 17:09 O2 Del Method High Flow Nasal C annula 04/30/23 17:09 O2 Flow Rate 4 04/30/23 14:30 BMI result Body Mass Index 18.1 Appearance: Alert.?Oriented to person, place and time. No acute distress.?Normal affect. Eyes: Pupils equal, round and reactive to light.? ENT: Pharynx normal.?? Neck: Normal inspection.? Neck supple.?? CVS: Heart sounds normal. Tachycardia? Pulses normal.?? Respiratory: Increased work of breathing, tachypnea, use of accessory muscles, inspiratory/expiratory wheezing bilaterally Abdomen: Soft and non-tender. Normoactive bowel sounds. No pulsatile mass.?? Skin: Skin warm and dry.? Normal skin color.? Extremities: No lower extremity edema.? No calf ttp? Neuro: Moves all extremities spontaneously. Sensation intact bilaterally. CN II- XII intact. No focal neuro deficits. Ambulates with normal steady gait. Course Reevaluation(s) Reevaluation #1: CBC reveals leukocytosis with WBC 15.4 with left shift, microcytic anemia, unremarkable CMP. Viral panel pending. CXR revealing diffuse emphysema with chronic scarring throughout, loculated right basilar pneumothorax. 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 Lactic acid is elevated at 2.1, covered with Rocephin IV, blood cultures are pending, patient to receive normal saline fluid bolus; On review of her chart she she has a chest CT from December 2019 at [facility], the impression includes a new superior segment of the right lower lobe along accessory fissure relatively geographic patchy nodular alveolar process. Unable to access imaging as records through [facility]. Consulting thoracic on-call, Dr. Fox ; advises in regards to a loculated pneumothorax does not feel as though chest tube insertion would provide significant improvement in symptoms, feels as though COPD exacerbation is the etiology for her distress. pending chest CT. Time: 10:54 Reevaluation #2: Acquired ultrasound guidance for peripheral IV to right upper extremity due to infiltration with IV fluids. Patient was able to be weaned off CPAP and onto 40 L via nasal cannula. Feeling significantly improved compared to arrival. CT of the chest is pending at this time. Time: 13:00 Reevaluation #3: Advised by nursing staff patient noted to be in acute distress, tripoding, tachycardic and tachypneic. Respiratory therapy called and she was placed back on CPAP. Time: 14:36 Additional Reevaluation(s): 14:50 - received call from lab regarding critical delta 435.6, >50% increase, repeat EKG reveals sinus tachycardia, T-wave inversions in V4-V5 more pronounced than prior, prolonged QTC at 552 MS, patient received magnesium 2 g IV. Consulted with Cardiology Dr. Hair, who feels these are chronic changes and does not see indication for initiating heparin at this time. Patient becoming increasingly anxious with CPAP on, constantly calling for mask off. She is placed on high-flow nasal cannula and is tolerating this well. 15:30 - CT of the chest reveals a right-sided hydropneumothorax, masslike consolidation in the right upper lobe with bronchial narrowing, advanced emphysema, old granulomatous disease. Consulted with hospitalist for admission to medicine service, Dr. Lopez expresses concern about stability of patient for admission to telemetry floor. Patient is full code her son is at bedside who states he is healthcare proxy and affirms that she is a full code. 17:00 - ED attending Dr. Larsen at bedside to also evaluate patient. Upon speaking with the hospitalist she became tachypneic with increased work of breathing again. Decision was made for fentanyl 50 mcg IV and lorazepam 1 mg IV to be administered with good effect. At this time she will remain in the emergency department and hospitalist team will re-evaluate for admission. Signed out to the care of Dr. Larsen Medications Administered Discontinued Medications Generic Name Dose Route Start Last Admin Trade Name Freq PRN Reason Stop Dose Admin Albuterol Sulfate 7.5 mg/ 10 mg 04/30/23 10:10 04/30/23 10:19 Albuterol Sulfate 2.5 mg INHALE 04/30/23 10:11 10 mg ONCE ONE Administration Fentanyl 50 mcg 04/30/23 16:59 04/30/23 17:05 Fentanyl Citrate/Pf 100 Mcg/2 Ml Vial IVPUSH 04/30/23 17:00 50 mcg ONCE ONE Administration Protocol Ceftriaxone Sodium 1 gm/ 50 mls @ 100 mls/hr 04/30/23 09:45 04/30/23 10:46 Sodium Chloride IV 04/30/23 10:14 Infused ONCE ONE Infusion Sodium Chloride 1,302 mls @ 1,302 mls/hr 04/30/23 10:50 04/30/23 15:34 Ns 30 ml/kg infuse over 1 hr (1302 ml) 04/30/23 11:49 Infused IV Infusion .Q1H STA Lorazepam 1 mg 04/30/23 17:11 04/30/23 17:13 Lorazepam 2 Mg/Ml Vial IVPUSH 04/30/23 17:12 1 mg ONCE ONE Administration Methylprednisolone Sodium Succinate 125 mg 04/30/23 09:36 04/30/23 10:05 Methylprednisolone Sod Succ 125 Mg/2 Ml Vial IVPUSH 04/30/23 09:37 125 mg ONCE ONE Administration Morphine Sulfate 2 mg 04/30/23 14:38 04/30/23 14:50 Morphine Sulfate 2 Mg/Ml Cartridge IVPUSH 04/30/23 14:39 2 mg ONCE ONE Administration Protocol Medical Decision Making Medical Decision Making MDM Narrative: Patient is an 82-year-old female with past medical history of hyperlipidemia, hypertension, history of AAA repair, ASCVD with history of cardiac catheterization in 2012; 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 Arrived to the ED with significant increased work of breathing despite DuoNeb administered by EMS. Will obtain CBC to evaluate for leukocytosis/ anemia, CMP and lipase to evaluate for abnormal electrolytes /abnormal renal function/ abnormal hepatic/biliary function, EKG and troponin to evaluate for ischemia/ACS. Chest x-ray to evaluate for consolidation/ infiltrate/ mass/ pulmonary congestion, VBG, blood cultures and lactic acid due to tachycardia and tachypnea -18:19: Patient is significantly tachypneic, 30-35 respirations per minute. Patient is on high-flow. Patient does not tolerate CPAP or BiPAP, despite trying fentanyl and Ativan IV. -I reviewed the patient's medical record with Dr. Lopez from the Medicine team. Patient looks very sick. It is unlikely that she will recovered from this admission. -at this time, patient is full code. Dr. Lopez and I discussed thoroughly with patient's son, patient's healthcare proxy that if the patient would need intubation, it is unlikely that she would be able to be weaned off. There is no benefit from intubating the patient at this time. Patient agreeable. Patient would like to change the patient's code status to DNR DNI. 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 -a MOLST form has been started, patient is DNR DNI Differential Diagnosis Differential Diagnoses: The differential diagnosis associated with the presentation includes (COPD exacerbation, pneumonia, lung cancer, PE, ACS) Admission/Observation Consideration of admission/observation: Escalation of care including admission/observation considered (See narrative above and course narrative for further detail) Lab Data MDM Lab Attestation statement: I reviewed the patient's lab results. (See course narrative) 04/30/23 09:55 04/30/23 09:55 Labs: Lab Results 04/30/23 04/30/23 04/30/23 Range/Units 09:53 09:54 09:55 WBC 15.4 H (4.8-10.8) X10*3/uL RBC 3.68 L (4.20-5.50) X10*6/uL Hgb 9.9 L (12.0-16.0) g/dl Hct 32.4 L (37.0-47.0) % MCV 88.0 (80.0-98.0) fL MCH 26.9 L (27.0-33.0) pg MCHC 30.6 L (31.0-35.0) g/dl RDW 18.9 H (11.0-16.0) % Plt Count 298 (160-400) X10*3/uL MPV 9.3 L (9.4-12.3) fL Immature Gran % (Auto) 0.6 H (0.0-0.4) % Neut % (Auto) 86.1 H (45-73) % Lymph % (Auto) 6.9 L (20-40) % [place] % (Auto) 6.2 (2-11) % Eos % (Auto) 0.0 (0-4) % Baso % (Auto) 0.2 (0-2) % Lymph # (Auto) 1.1 L (1.2-4.9) X10*3/uL [place] # (Auto) 1.0 (0.1-1.2) X10*3/uL Eos # (Auto) 0.0 (0.0-0.4) X10*3/uL Baso # (Auto) 0.0 (0.0-0.2) X10*3/uL Abs Immat Gran (auto) 0.09 H (0.00-0.03) X10*3/uL Absolute Neuts (auto) 13.3 H (2.0-8.3) x10*3/uL Absolute Nucleated RBC 0.000 (0.0-0.012) X10*3/uL Nucleated RBC % (auto) 0.0 (0.0-0.2) /100WBC PT 11.1 (11.1-13.3) SEC INR 0.9 (0.9-1.1) VBG pH (7.32-7.43) VBG pCO2 mmHg VBG pO2 mmHg VBG HCO3 (22-26) mmol/L VBG O2 Saturation % VBG Base Excess mmol/L Sodium 140 (135-145) mmol/L Potassium 4.7 (3.3-5.1) mmol/L Chloride 106 (96-108) mmol/L Carbon Dioxide 27 (22-29) mmol/L Anion Gap 12 (12-20) BUN 15 (9-16) mg/dL Creatinine 0.66 (0.5-1.4) mg/dL Estim Creat Clear Calc 43.4 Estimated GFR > 60 Random Glucose 205 H (60-115) mg/dL Lactic Acid 2.1 H* (0.5-2.0) mmol/L Lactic Acid F/U @ 2Hr (0.5-2.0) mmol/L Calcium 9.1 (8.4-10.2) mg/dL Magnesium 1.9 (1.6-2.6) mg/dL Total Bilirubin 0.2 (0.0-1.0) mg/dL AST 20 (5-31) U/L ALT 7 (0-31) U/L Alkaline Phosphatase 126 H (39-117) U/L Troponin I High Sens 249.5 H* (<3.5-17.0) ng/L B-Natriuretic Peptide 190 H (<100) pg/mL Total Protein 7.3 (6.5-8.0) g/dL Albumin 3.7 (3.5-5.0) g/dL Lipase 12 (8-78) U/L Influenza Type A (PCR) NEGATIVE (Negative) Influenza Type B (PCR) NEGATIVE (Negative) RSV RNA Qual (PCR) NEGATIVE (Negative) SARS-CoV-2 RNA (RT-PCR) NEGATIVE (Negative) 04/30/23 04/30/23 04/30/23 Range/Units 10:01 14:11 15:45 WBC (4.8-10.8) X10*3/uL RBC (4.20-5.50) X10*6/uL Hgb (12.0-16.0) g/dl Hct (37.0-47.0) % MCV (80.0-98.0) fL MCH (27.0-33.0) pg MCHC (31.0-35.0) g/dl RDW (11.0-16.0) % Plt Count (160-400) X10*3/uL MPV (9.4-12.3) fL Immature Gran % (Auto) (0.0-0.4) % Neut % (Auto) (45-73) % Lymph % (Auto) (20-40) % [place] % (Auto) (2-11) % Eos % (Auto) (0-4) % Baso % (Auto) (0-2) % Lymph # (Auto) (1.2-4.9) X10*3/uL [place] # (Auto) (0.1-1.2) X10*3/uL Eos # (Auto) (0.0-0.4) X10*3/uL Baso # (Auto) (0.0-0.2) X10*3/uL Abs Immat Gran (auto) (0.00-0.03) X10*3/uL Absolute Neuts (auto) (2.0-8.3) x10*3/uL Absolute Nucleated RBC (0.0-0.012) X10*3/uL Nucleated RBC % (auto) (0.0-0.2) /100WBC PT (11.1-13.3) SEC INR (0.9-1.1) VBG pH 7.35 (7.32-7.43) VBG pCO2 46 mmHg VBG pO2 80 mmHg VBG HCO3 26 (22-26) mmol/L VBG O2 Saturation 95.0 % VBG Base Excess 0.5 mmol/L Sodium (135-145) mmol/L Potassium (3.3-5.1) mmol/L Chloride (96-108) mmol/L Carbon Dioxide (22-29) mmol/L Anion Gap (12-20) BUN (9-16) mg/dL Creatinine (0.5-1.4) mg/dL Estim Creat Clear Calc Estimated GFR Random Glucose (60-115) mg/dL Lactic Acid (0.5-2.0) mmol/L Lactic Acid F/U @ 2Hr 4.1 H* (0.5-2.0) mmol/L Calcium (8.4-10.2) mg/dL Magnesium (1.6-2.6) mg/dL Total Bilirubin (0.0-1.0) mg/dL AST (5-31) U/L ALT (0-31) U/L Alkaline Phosphatase (39-117) U/L Troponin I High Sens 435.6 H* D (<3.5-17.0) ng/L B-Natriuretic Peptide (<100) pg/mL Total Protein (6.5-8.0) g/dL Albumin (3.5-5.0) g/dL Lipase (8-78) U/L Influenza Type A (PCR) (Negative) Influenza Type B (PCR) (Negative) RSV RNA Qual (PCR) (Negative) SARS-CoV-2 RNA (RT-PCR) (Negative) 04/30/23 Range/Units 15:47 WBC (4.8-10.8) X10*3/uL RBC (4.20-5.50) X10*6/uL Hgb (12.0-16.0) g/dl Hct (37.0-47.0) % MCV (80.0-98.0) fL MCH (27.0-33.0) pg MCHC (31.0-35.0) g/dl RDW (11.0-16.0) % Plt Count (160-400) X10*3/uL MPV (9.4-12.3) fL Immature Gran % (Auto) (0.0-0.4) % Neut % (Auto) (45-73) % Lymph % (Auto) (20-40) % [place] % (Auto) (2-11) % Eos % (Auto) (0-4) % Baso % (Auto) (0-2) % Lymph # (Auto) (1.2-4.9) X10*3/uL [place] # (Auto) (0.1-1.2) X10*3/uL Eos # (Auto) (0.0-0.4) X10*3/uL Baso # (Auto) (0.0-0.2) X10*3/uL Abs Immat Gran (auto) (0.00-0.03) X10*3/uL Absolute Neuts (auto) (2.0-8.3) x10*3/uL Absolute Nucleated RBC (0.0-0.012) X10*3/uL Nucleated RBC % (auto) (0.0-0.2) /100WBC PT (11.1-13.3) SEC INR (0.9-1.1) VBG pH (7.32-7.43) VBG pCO2 mmHg VBG pO2 mmHg VBG HCO3 (22-26) mmol/L VBG O2 Saturation % VBG Base Excess mmol/L Sodium (135-145) mmol/L Potassium (3.3-5.1) mmol/L Chloride (96-108) mmol/L Carbon Dioxide (22-29) mmol/L Anion Gap (12-20) BUN (9-16) mg/dL Creatinine (0.5-1.4) mg/dL Estim Creat Clear Calc Estimated GFR Random Glucose (60-115) mg/dL Lactic Acid (0.5-2.0) mmol/L Lactic Acid F/U @ 2Hr (0.5-2.0) mmol/L Calcium (8.4-10.2) mg/dL Magnesium 1.8 (1.6-2.6) mg/dL Total Bilirubin (0.0-1.0) mg/dL AST (5-31) U/L ALT (0-31) U/L Alkaline Phosphatase (39-117) U/L Troponin I High Sens (<3.5-17.0) ng/L B-Natriuretic Peptide (<100) pg/mL Total Protein (6.5-8.0) g/dL Albumin (3.5-5.0) g/dL Lipase (8-78) U/L Influenza Type A (PCR) (Negative) Influenza Type B (PCR) (Negative) RSV RNA Qual (PCR) (Negative) SARS-CoV-2 RNA (RT-PCR) (Negative) Independent Interpretation I performed an independent interpretation of an: Plain X-Ray (Right lower lobe pneumothorax) Radiology Impression Discussion of test interpretation with radiology: I have reviewed the radiologist's reading. Radiologist Impression: XR/XR chest 1V IMPRESSION: 1. Diffuse emphysema with chronic scarring throughout the right lung and left upper lobe. 2. There is a loculated right basilar pneumothorax. 3. There is left mastectomy changes. 4. There is no acute consolidation. CT/CT chest wo IV con IMPRESSION: 1. Right-sided hydropneumothorax confirmed. 2. Masslike consolidation right upper lobe with bronchial narrowing. This may be related to postobstructive phenomena due to endobronchial lesion not excluded. Pulmonary medicine consultation revised. 3. Advanced emphysema. 4. Evidence of old granulomatous disease. Independent Historian Clinical information obtained from an independent historian. History obtained from or confirmed by: EMS and Other (Children present at bedside who confirms history) External Record Review External record reviewed: Outpatient record Procedures EJ/Peripheral Line Arm R: Time Out Performed: Yes Skin Cleansed in Sterile Fashion: Yes Size (gauge): 20 IV Secured and Dressing Applied: Yes Patient Tolerated Procedure: well Critical Care Time Critical Care Time Critical Care Time: Yes Total Critical Care Time: 120 Attestation: I personally attest to this critical care time spent taking care of the patient exclusive of all other billable procedures was approximately 120 minutes including initial evaluation of patient, ordering tests, x-ray interpretation, EKG interpretation, medical consultation, documentation, re-evaluation. Discharge Plan Discharge Clinical Impression: Acute and chronic respiratory failure with hypoxia, COPD exacerbation, Sepsis, Hydropneumothorax, Right upper lobe consolidation Patient Disposition: Admitted As Inpatient Prescriptions: No Action amlodipine 2.5 mg tablet 2.5 mg PO DAILY Qty: 90 3RF Trelegy Ellipta 100-62.5-25 mcg blister with device 1 ea inhalation DAILY Qty: 180 4RF albuterol sulfate 2.5 mg /3 mL (0.083 %) solution for nebulization 2.5 mg inhalation Q6H PRN (Reason: shortness of breath or wheezing) Qty: 120 11RF Praluent Pen 75 mg/mL pen injector 75 mg subcut Q2W Qty: 7 3RF Rx Instructions: inject into abdomen, thigh, or upper arm (deltoid muscle); rotate sites Ensure Original Liquid 1 ea PO TID ferrous sulfate 325 mg (65 mg iron) tablet 325 mg PO DAILY aspirin [Adult Aspirin Regimen] 81 mg tablet,delayed release (DR/EC) 81 mg PO DAILY oxycodone-acetaminophen 7.5-325 mg tablet 1 tab PO Q6H PRN (Reason: Pain) multivitamin [Daily Multi-Vitamin] Tablet 1 tab PO DAILY ascorbic acid (vitamin C) 500 mg capsule 500 mg PO DAILY albuterol sulfate 90 mcg/actuation HFA aerosol inhaler 2 inh inhalation Q6H PRN (Reason: shortness of breath or wheezing) 30 Days Qty: 8.5 3RF
[2023-04-30 10:01] LABS: MANUAL DIFF FLAG NO
[2023-04-30 10:02] LABS: Basophils Percent Auto 0.2 % (0-2); Hematocrit 32.4 % (37.0-47.0); Hemoglobin 9.9 g/dl (12.0-16.0); Imm Gran Abs Auto 0.09 X10*3/uL (0.00-0.03); Imm Gran Pct Auto 0.6 % (0.0-0.4); Lymphocytes Absolute Auto 1.1 X10*3/uL (1.2-4.9); Lymphocytes Percent Auto 6.9 % (20-40); Mean Corpuscular HGB Conc 30.6 g/dl (31.0-35.0); Mean Corpuscular Hemoglobin 26.9 pg (27.0-33.0); Mean Platelet Volume 9.3 fL (9.4-12.3); Monocytes Percent Auto 6.2 % (2-11); Neutrophils Absolute Auto 13.3 x10*3/uL (2.0-8.3); Neutrophils Percent Auto 86.1 % (45-73); Platelet Count 298 X10*3/uL (160-400); Red Blood Count 3.68 X10*6/uL (4.20-5.50); Red Cell Distribution Width 18.9 % (11.0-16.0); White Blood Count 15.4 X10*3/uL (4.8-10.8)
[2023-04-30] MEDS: methylPREDNISolone Sod Succ 125 MG/2 ML VIAL IVPUSH (10:05)
[2023-04-30 10:07] LABS: VBG Base Excess 0.5 mmol/L; VBG HCO3 26 mmol/L (22-26); VBG pCO2 46 mmHg; VBG pH 7.35 (7.32-7.43); VBG pO2 80 mmHg
[2023-04-30 10:08] LABS: INTERNATIONAL NORM RATIO 0.9 (0.9-1.1); Prothrombin Time 11.1 SEC (11.1-13.3)
--- NOTE | 2023-04-30 10:09 | PC.NURSE ---
patient a&ox3, cafeteria monitor applied-sinus tach on monitor, pt work of breathing labored/accessory muscle use, lungs in/ex wheezing throughout with crackles at bases, iv inserted, labs drawn, ekg performed, cxr performed, RT at bedside, pt given albuterol updraft, pt placed on cpap 8/35%, pts rr is 22, pt denies pain, family at bedside, call andrade within reach, will continue to monitor
[2023-04-30 10:10] LABS: Venous Blood Gas Refer to POC result
[2023-04-30] MEDS: cefTRIAXone sodium 1 GM in 0.9 % Sodium Chloride 50 ML IV (10:16)
[2023-04-30] MEDS: Albuterol Sulfate 7.5 MG, Albuterol Sulfate (0.083%) 2.5 MG 10 MG INHALE (10:19)
[2023-04-30 10:29] LABS: Alanine Aminotransferase 7 U/L (0-31); Albumin Level 3.7 g/dL (3.5-5.0); Alkaline Phosphatase 126 U/L (39-117); Anion Gap 12 (12-20); Aspartate Amino Transferase 20 U/L (5-31); Bilirubin Total 0.2 mg/dL (0.0-1.0); Blood Urea Nitrogen 15 mg/dL (9-16); Calcium 9.1 mg/dL (8.4-10.2); Carbon Dioxide 27 mmol/L (22-29); Chloride 106 mmol/L (96-108); Creatinine Clr Calc Pharmacy 43.4; Estimated Glomerular Filt Rate > 60; Glucose Random 205 mg/dL (60-115); Lipase 12 U/L (8-78); Magnesium 1.9 mg/dL (1.6-2.6); Potassium 4.7 mmol/L (3.3-5.1); Sodium 140 mmol/L (135-145); Total Protein 7.3 g/dL (6.5-8.0)
[2023-04-30 10:33] LABS: B Type Natriuretic Peptide 190 pg/mL (<100)
[2023-04-30 10:38] LABS: Lactic Acid 2.1 mmol/L (0.5-2.0)
[2023-04-30 10:41] LABS: Troponin-I High Sensitivity 249.5 ng/L (<3.5-17.0)
[2023-04-30 10:52] LABS: Influenza A PCR NEGATIVE (Negative); Influenza B PCR NEGATIVE (Negative); Resp Syncy Virus RNA Qual PCR NEGATIVE (Negative); SARS COV2 PCR INHOUSE NEGATIVE (Negative)
--- NOTE | 2023-04-30 11:20 | PC.NURSE ---
pure wick placed, pt positioned for comfort. son at bedside who continuously is moving and adjusting the patients cpap, he has been asked multiple times to not touch the device as it is working appropriately, pt asking for the cpap to be removed, this nurse temporarily removed the cpap and the patient immediately recognized that she was unable to breathe as her respirations increased immediately and assessory muscle use began again. patient asked for the cpap to be put back and and she shook her head yes that she felt better breathing once it was replaced.
[2023-04-30 11:59] LABS: Reflex Lactate? Lactic Acid Added
--- NOTE | 2023-04-30 12:00 | PC.NURSE ---
rt arm IV infiltrated- provider notified, pt still has fluids to run, multiple attempts were performed to re-start iv access, pt unable to have access on lt side due to mastectomy. provider to attempt with US guided.
--- NOTE | 2023-04-30 12:53 | PC.NURSE ---
US guided IV done by provider, pts IVF continue to run slowly through new access, pt changed from CPAP to montanez @4L, pt to go to CT scan shortly
--- NOTE | 2023-04-30 13:15 | PC.NURSE ---
pt went to CT scan and was returned to the room, US guided IV infiltrated. will notify provider
--- NOTE | 2023-04-30 14:30 | PC.NURSE ---
Additional US trained RN was able to obtain another US guided IV site to rt arm- again, pt is unable to have IVs to left arm. Pts IVF were again hooked back up and are flowing at this time. Pt began tripoding and stating she was unable to breathe, pt had been changed over to 4L NC by respiratory. RT was called to bedside as were the providers, RT placed patient back on cpap 10/35%, pt tolerating cpap well at this time, family at bedside, will continue to monitor
[2023-04-30] MEDS: Morphine Sulfate 2 MG/ML CARTRIDGE IVPUSH (14:50)
[2023-04-30 14:51] LABS: Troponin-I High Sensitivity 435.6 ng/L (<3.5-17.0)
--- NOTE | 2023-04-30 14:52 | ECG_ITS ---
Test Reason : SOB Blood Pressure : / mmHG Vent. Rate : 110 BPM Atrial Rate : 110 BPM P-R Int : 188 ms QRS Dur : 086 ms QT Int : 408 ms P-R-T Axes : 075 080 086 degrees QTc Int : 552 ms Sinus tachycardia T wave abnormality, consider lateral ischemia Prolonged QT Abnormal ECG When compared with ECG of 30-APR-2023 10:00, Non-specific change in ST segment in Lateral leads Referred By: Sofie Birmingham Electronically Signed By:AYSE LIU MD
--- NOTE | 2023-04-30 14:53 | PC.NURSE ---
pt medicated with morphine to help with respiratory
--- NOTE | 2023-04-30 15:40 | PC.NURSE ---
pt restless and in a panic state attempting to pull off the cpap, this nurse spoke with the patient and told her that she needs to relax and let that help her breathe, she is complaining that she is thirsty and wants the cpap off, this nurse spoke with the provider as well as called RT who is going to come evaluate the patient to see if the patient can move to a montanez vs the cpap.
[2023-04-30 16:08] LABS: ~Lactic Acid-LAB USE ONLY 4.1 mmol/L (0.5-2.0)
[2023-04-30 16:09] LABS: Magnesium 1.8 mg/dL (1.6-2.6)
[2023-04-30] MEDS: fentaNYL citrate/PF 100 MCG/2 ML VIAL 50 MCG IVPUSH (17:05)
[2023-04-30] MEDS: LORazepam 2 MG/ML VIAL 1 MG IVPUSH (17:13)
--- NOTE | 2023-04-30 17:20 | PC.NURSE ---
patient awake/alert, hospitalist was at bedside speaking with patient and family, patients work of breathing increased/rr increased, hospitalist came out calling staff into room to assist patient as well as requesting respiratory and ED providers all of which went to bedside, pt was medicated with fentanyl and ativan to decrease work of breathing, pt remains on high flow O2. pts respiratory rate decreased after medication and patient is more comfortable- pt dislikes the cpap and was refusing to have it put back on at this time. her O2 sat remains stable currently on the high flow, son is at bedside, will continue to monitor.
[2023-04-30 17:53] LABS: Reflex Lactate? 2 Y
--- NOTE | 2023-04-30 17:59 | PHA.MEDREC ---
Pharmacy Consult ? Medication Reconciliation Pharmacy has completed the medication reconciliation. Son at bedside had med list.
--- NOTE | 2023-04-30 18:14 | P.HPHOSP_ITS ---
History of Present Illness Date of Service: 04/30/23 Chief Complaint: Shortness of breath 82-year-old female patient with past medical history significant for advanced COPD, history of lung cancer status post radiation therapy, currently being followed at [facility] Oncology with Dr. Se Garcia, patient was doing fine up until yesterday this morning she woke up with shortness of breath without associated fever, chills, no cough, denies sick contacts, denies nausea vomiting, aspiration, no abdominal pain, no urinary symptoms of urgency frequency, she took her home nebulizers and continued on 2 L of home oxygen without any improvement, in the emergency room she was noted to have WBC count of 15,400 with left shift, chest x-ray showed diffuse emphysema with chronic scarring, loculated right basilar pneumothorax, CT chest showed right-sided hydropneumothorax, masslike consolidation in the right upper lobe with bronchial narrowing, advanced emphysema, old granulomatous disease, she was noted to have elevated troponin of 249.5, EKG showed sinus tachycardia with ventricular rate of 112, lactic acid was 2.1 patient was treated with IV Rocephin, blood cultures were obtained, ED provider discuss case with Dr. Fox he felt chest tube insertion would not provide significant improvement in symptoms patient treated in the emergency room with CPAP patient's symptoms improved however patient was unable to keep the CPAP and was placed back on nasal cannula but she was noted to have hypoxia therefore placed on high-flow nasal cannula during conversing with patient she developed significant respiratory distress with her respiratory rate in mid 30s, therefore she was treated with fentanyl 100 mcg and Ativan, post treatment patient respiratory rate improved for short duration but went back up to 30s at this time goal of care was discussed with Patient's son at bedside, explained to him patient's critical medical condition with underlying lung mass with likely post obstructive pneumonia ,advanced COPD, fraility and hydropneumothorax that patient is not a candidate for intubation and will be difficult to come out of ventilator, and medical intervention may prolong her suffering, son agreed for DNR DNI will admit patient on high-flow oxygen for treatment of acute worsening COPD exacerbation due to underlying post obstructive pneumonia and hydropneumothorax.. Review of Systems 2 Review of Systems: Unable to obtain complete review of system due to clinical status of respiratory distress [facility] Medical History (Updated 05/01/23 @ 09:39 by Adam Thompson MD) Secondary spontaneous pneumothorax H/O malignant neoplasm of lung Pulmonary nodules Hypoxemia COPD (chronic obstructive pulmonary disease) Family History Father No problems noted. Mother CAD (coronary artery disease) Surgical History Hx of mastectomy Social History Household Members: None Housing: Apartment Patient Tobacco Use Status: Former Tobacco user Years Smoked: 56 Smoked in Last 30 Days: No Use of substances other than those prescribed or required for medical reasons: No Currently Displaying Signs/Symptoms of Drug Intoxication Withdrawal: No Have you been hit, kicked, punched, or otherwise hurt by someone within the past year? If so, by whom?: No Do you feel safe in your current relationship?: No Current Relationship Is there a partner from a previous relationship who is making you feel unsafe now?: No Are you made to feel afraid or neglected: No Advance Directives: No Advance Directives Information Provided: No Do you have thoughts of harming others: None Do you have a plan to hurt others: No Plan Recently lost weight without trying: Yes Eating poorly because of decreased appetite: Yes Patient : No service: No Meds Allergies Allergy/AdvReac Type Severity Reaction Status Date / Time No Known Allergies Allergy Unknown NOT Verified 04/30/23 09:32 APPLICABLE Home Medications Medication Instructions Recorded Confirmed Last Taken Type aspirin 81 mg tablet,delayed 81 mg PO DAILY 11/05/20 04/30/23 Unknown History release (Adult Aspirin Regimen) ferrous sulfate 325 mg (65 mg 325 mg PO DAILY 11/05/20 04/30/23 Unknown History iron) tablet oxycodone-acetaminophen 7.5 mg-325 1 tab PO Q6H PRN Pain 11/05/20 04/30/23 Unknown History mg tablet multivitamin (Daily Multi-Vitamin 1 tab PO DAILY 06/22/22 04/30/23 Unknown History tablet) ascorbic acid (vitamin C) 500 mg 500 mg PO DAILY 12/19/22 04/30/23 Unknown History capsule food supplemt, lactose-reduced 1 ea PO TID 04/30/23 04/30/23 Unknown History (Ensure Original oral liquid) Physical Exam 2 Vital Signs and Narrative: Vital Signs: Last Vital Signs Temp 98.0 F 04/30/23 17:09 Pulse 112 H 04/30/23 17:09 Resp 18 04/30/23 17:09 BP 130/84 04/30/23 17:09 Pulse Ox 98 04/30/23 17:09 O2 Del Method High Flow Nasal C annula 04/30/23 17:09 O2 Flow Rate 4 04/30/23 14:30 BMI result Body Mass Index 18.1 Const: Other: General initially awake alert, tachypneic tachycardic was able to communicate earlier but went into respiratory distress and now sedated Neck no JVD. CVS regular rate rhythm, Respiratory lungs diminished breath sounds bilaterally, use of accessory muscles, tachypnea Gastrointestinal abdomen soft, bowel sounds audible, no guarding , no rigidity. Extremities no edema. Neuro non focal,speech clear. Skin no rash Psych appropriate affect Results Labs 05/01/23 08:01 05/01/23 08:01 Labs: Laboratory Results - last 24 hr 04/30/23 04/30/23 04/30/23 09:53 09:54 09:55 MCV 88.0 MCH 26.9 L MCHC 30.6 L RDW 18.9 H Plt Count 298 MPV 9.3 L Immature Gran % (Auto) 0.6 H Neut % (Auto) 86.1 H Lymph % (Auto) 6.9 L [place] % (Auto) 6.2 Eos % (Auto) 0.0 Baso % (Auto) 0.2 Lymph # (Auto) 1.1 L [place] # (Auto) 1.0 Eos # (Auto) 0.0 Baso # (Auto) 0.0 Abs Immat Gran (auto) 0.09 H Absolute Neuts (auto) 13.3 H Absolute Nucleated RBC 0.000 Nucleated RBC % (auto) 0.0 PT 11.1 INR 0.9 VBG pH VBG pCO2 VBG pO2 VBG HCO3 VBG O2 Saturation VBG Base Excess Anion Gap 12 Estim Creat Clear Calc 43.4 Estimated GFR > 60 Random Glucose 205 H Lactic Acid 2.1 H* Lactic Acid F/U @ 2Hr Calcium 9.1 Magnesium 1.9 Total Bilirubin 0.2 AST 20 ALT 7 Alkaline Phosphatase 126 H Troponin I High Sens 249.5 H* B-Natriuretic Peptide 190 H Total Protein 7.3 Albumin 3.7 Lipase 12 Influenza Type A (PCR) NEGATIVE Influenza Type B (PCR) NEGATIVE RSV RNA Qual (PCR) NEGATIVE SARS-CoV-2 RNA (RT-PCR) NEGATIVE 04/30/23 04/30/23 04/30/23 10:01 14:11 15:45 MCV MCH MCHC RDW Plt Count MPV Immature Gran % (Auto) Neut % (Auto) Lymph % (Auto) [place] % (Auto) Eos % (Auto) Baso % (Auto) Lymph # (Auto) [place] # (Auto) Eos # (Auto) Baso # (Auto) Abs Immat Gran (auto) Absolute Neuts (auto) Absolute Nucleated RBC Nucleated RBC % (auto) PT INR VBG pH 7.35 VBG pCO2 46 VBG pO2 80 VBG HCO3 26 VBG O2 Saturation 95.0 VBG Base Excess 0.5 Anion Gap Estim Creat Clear Calc Estimated GFR Random Glucose Lactic Acid Lactic Acid F/U @ 2Hr 4.1 H* Calcium Magnesium Total Bilirubin AST ALT Alkaline Phosphatase Troponin I High Sens 435.6 H* D B-Natriuretic Peptide Total Protein Albumin Lipase Influenza Type A (PCR) Influenza Type B (PCR) RSV RNA Qual (PCR) SARS-CoV-2 RNA (RT-PCR) 04/30/23 15:47 MCV MCH MCHC RDW Plt Count MPV Immature Gran % (Auto) Neut % (Auto) Lymph % (Auto) [place] % (Auto) Eos % (Auto) Baso % (Auto) Lymph # (Auto) [place] # (Auto) Eos # (Auto) Baso # (Auto) Abs Immat Gran (auto) Absolute Neuts (auto) Absolute Nucleated RBC Nucleated RBC % (auto) PT INR VBG pH VBG pCO2 VBG pO2 VBG HCO3 VBG O2 Saturation VBG Base Excess Anion Gap Estim Creat Clear Calc Estimated GFR Random Glucose Lactic Acid Lactic Acid F/U @ 2Hr Calcium Magnesium 1.8 Total Bilirubin AST ALT Alkaline Phosphatase Troponin I High Sens B-Natriuretic Peptide Total Protein Albumin Lipase Influenza Type A (PCR) Influenza Type B (PCR) RSV RNA Qual (PCR) SARS-CoV-2 RNA (RT-PCR) Imaging Radiologist's Impressions: Impressions Chest X-Ray 04/30/23 09:59 IMPRESSION: 1. Diffuse emphysema with chronic scarring throughout the right lung and left upper lobe. 2. There is a loculated right basilar pneumothorax. 3. There is left mastectomy changes. 4. There is no acute consolidation. Chest CT 04/30/23 13:44 IMPRESSION: 1. Right-sided hydropneumothorax confirmed. 2. Masslike consolidation right upper lobe with bronchial narrowing. This may be related to postobstructive phenomena due to endobronchial lesion not excluded. Pulmonary medicine consultation revised. 3. Advanced emphysema. 4. Evidence of old granulomatous disease. Fleischner guidelines were followed. 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 Acute on chronic hypoxic respiratory failure due to COPD exacerbation/post obstructive pneumonia due to possible endobronchial lesion/hydropneumothorax Patient in significant respiratory distress with tachypnea tachycardia and hypoxia unable to tolerate BiPAP Continue IV steroids, updraft treatment, IV antibiotics supportive care with cough medications antiemetics and analgesics vbg showed pH 7.3, pCO2 45 O2 sat 100% ED provider spoke with Dr. Fox he feels patient does not require chest tube at this time. Obtain Thoracic surgery and Pulmonary consultation High-flow oxygen/CPAP if able to tolerate, patient on baseline 2-3 L of oxygen. Discussed hospice/INK TECHNICIAN with patient son at bedside,he is not ready for INK TECHNICIAN at present Patient's family aware of patient's critical condition. Sepsis with tachypnea ,tachycardia ,leukocytosis due to postobstructive pneumonia continue IV Zosyn follow blood cultures Acute lactic acidosis likely due to use of albuterol as well as due to sepsis continue treatment as above. Elevated troponin likely due to hypoxia, EKG showed prolonged QT, T-wave abnormality lateral leads, repeat labs ,cardiology recommend to hold heparin . Moderate protein calorie malnutrition, place on supplements, nutrition eval. DVT prophylaxis lovenox Code status DNR DNI In my clinical judgment patient will require 2 night inpatient hospitalization for management of acute on chronic hypoxic respiratory failure due to exacerbation of advanced COPD Post obstructive pneumonia and sepsis requiring IV hydration IV steroids IV antibiotic and expert consultation that can not be provided in less acute setting. Quality Stroke Does the patient have a stroke diagnosis?: No VTE Prior VTE?: No VTE Risk Level:: Medical - moderate - high VTE Device Contraindication: Treatment Not Indicated VTE Drug Contraindication: N/A - Med Ordered
[2023-04-30 19:14] LABS: ~Lactic Acid-LAB USE ONLY 2.5 mmol/L (0.5-2.0)
[2023-04-30 19:31] LABS: Troponin-I High Sensitivity 611.9 ng/L (<3.5-17.0)
--- NOTE | 2023-04-30 19:35 | PC.NURSE ---
Assumed care of pt. Pt lying on stretcher, high flow O2 on pt, family at bedside. Current plan to obtain signature of family for DNR/DNI, medication and admission.
[2023-04-30] MEDS: levalbuterol HCL 1.25 MG/3 ML VIAL.NEB INHALE (19:49)
[2023-04-30] MEDS: Morphine Sulfate 4 MG/ML CARTRIDGE 3 MG IVPUSH (20:35)
[2023-04-30] MEDS: Enoxaparin Sodium 40 MG/0.4 ML SYRINGE SUBCUT (20:47)
[2023-04-30] MEDS: Piperacillin Sodium/Tazobactam 3.375 GM in 0.9 % Sodium Chloride 50 ML IV (20:47)
[2023-04-30] MEDS: methylPREDNISolone Sod Succ 40 MG/ML VIAL IVPUSH (20:47)
[2023-04-30 21:40] LABS: Cancel Lactic Acid Canceled
[2023-04-30 21:50] LABS: Venous Blood Gas Refer to POC result
[2023-04-30 21:51] LABS: VBG Base Excess -1.7 mmol/L; VBG HCO3 24 mmol/L (22-26); VBG pCO2 45 mmHg; VBG pH 7.33 (7.32-7.43); VBG pO2 189 mmHg
--- NOTE | 2023-04-30 22:03 | MHC.EDTECH ---
Pt was assisted with a complete bed bath, with total assistance of 2. Pt is using a Purewick which was changed/replaced. Pt complaints of feeling too warm, which we tried to relieve by changing her linens and providing a thin sheet to cover herself with. Pt was repositioned. Pt was left with family in room. Pt tolerated activity well.
[2023-04-30] MEDS: Morphine Sulfate 2 MG/ML CARTRIDGE 1 MG IVPUSH (22:06)
--- NOTE | 2023-04-30 22:30 | PC.NURSE ---
Attempted to place pt on CPAP with minimal toleration. Pt shows mild improvement on mask, but endorses discomfort. Returned pt to high flow O2 per pt request. Providers at bedside for conversation with family about plans for pt. pt endorsed increased pain, additional dose of medicatoin ordered and given, and scheduled pain medication order changed for more frequent dosing. Pt family remains at bedside at this time.
[2023-04-30] MEDS: LORazepam 2 MG/ML VIAL 0.5 MG IVPUSH (23:49)
[2023-05-01] VITALS (12 sets, daily range): BP systolic 106–143; BP diastolic 68–94; PULSE 62–119; RESP 16–30; TEMP 36.2–37.1; O2SAT 92–100; BMI 17.8
[2023-05-01] MEDS: 0.9 % Sodium Chloride Flush 3 ML SYRINGE IVFLUSH ×4 (00:09→22:30)
--- NOTE | 2023-05-01 00:09 | PC.NURSE ---
pt appears restless work of breathing increased. prn ativan given. respiratory called to bedside to reassess pt.
--- NOTE | 2023-05-01 00:37 | PC.NURSE ---
pt transported to [facility] hand over to idalia kuhn.
[2023-05-01] MEDS: Morphine Sulfate 4 MG/ML CARTRIDGE 3 MG IVPUSH ×6 (00:54→11:39)
[2023-05-01] MEDS: Piperacillin Sodium/Tazobactam 3.375 GM in 0.9 % Sodium Chloride 50 ML IV ×2 (01:21→08:14)
[2023-05-01] MEDS: LORazepam 2 MG/ML VIAL 0.5 MG IVPUSH ×2 (04:56→14:53)
[2023-05-01] MEDS: levalbuterol HCL 1.25 MG/3 ML VIAL.NEB INHALE (07:26)
[2023-05-01] MEDS: methylPREDNISolone Sod Succ 40 MG/ML VIAL IVPUSH (08:11)
[2023-05-01 08:17] LABS: Hematocrit 36.6 % (37.0-47.0); Mean Corpuscular HGB Conc 30.1 g/dl (31.0-35.0); Mean Corpuscular Hemoglobin 27.1 pg (27.0-33.0); Mean Corpuscular Volume 90.1 fL (80.0-98.0); Mean Platelet Volume 10.2 fL (9.4-12.3); Platelet Count 253 X10*3/uL (160-400); Red Blood Count 4.06 X10*6/uL (4.20-5.50); Red Cell Distribution Width 19.2 % (11.0-16.0); White Blood Count 13.4 X10*3/uL (4.8-10.8)
[2023-05-01 08:43] LABS: Anion Gap 16 (12-20); Blood Urea Nitrogen 23 mg/dL (9-16); Carbon Dioxide 24 mmol/L (22-29); Chloride 110 mmol/L (96-108); Creatinine Clr Calc Pharmacy 42.1; Estimated Glomerular Filt Rate > 60; Glucose Random 113 mg/dL (60-115); Potassium 4.7 mmol/L (3.3-5.1); Sodium 145 mmol/L (135-145)
[2023-05-01 09:03] LABS: ABG Base Excess 0.4 mmol/L; ABG HCO3 29 mmol/L (22-26); ABG pCO2 67 mmHg (32-45); ABG pH 7.24 (7.35-7.45); ABG pO2 179 mmHg (83-108)
--- NOTE | 2023-05-01 09:31 | PM.CNPUL ---
History of Present Illness History of Present Illness Consult date: 05/01/23 Chief complaint: COPD exacerbation, post obstructive pneumonia Narrative: This is an inpatient pulmonary consultation. The patient is a 82-year-old female patient with past medical history significant for advanced COPD, history of lung cancer status post radiation therapy, currently being followed at [facility] with Dr. Se Garcia, patient was doing fine up until yesterday this morning she woke up with shortness of breath without associated fever, chills, no cough, denies sick contacts, denies nausea vomiting, aspiration, no abdominal pain, no urinary symptoms of urgency frequency, she took her home nebulizers and continued on 2 L of home oxygen without any improvement, in the emergency room she was noted to have WBC count of 15,400 with left shift, chest x-ray showed diffuse emphysema with chronic scarring, loculated right basilar pneumothorax, CT chest showed right-sided hydropneumothorax, masslike consolidation in the right upper lobe with bronchial narrowing, advanced emphysema, old granulomatous disease, she was noted to have elevated troponin of 249.5, EKG showed sinus tachycardia with ventricular rate of 112, lactic acid was 2.1 patient was treated with IV Rocephin, blood cultures were obtained, ED provider discuss case with Dr. Fox he felt chest tube insertion would not provide significant improvement in symptoms patient treated in the emergency room with CPAP patient's symptoms improved however patient was unable to keep the CPAP and was placed back on nasal cannula but she was noted to have hypoxia therefore placed on high-flow nasal cannula during conversing with patient she developed significant respiratory distress with her respiratory rate in mid 30s, therefore she was treated with fentanyl 100 mcg and Ativan, post treatment patient respiratory rate improved for short duration but went back up to 30s at this time goal of care was discussed with Patient's son at bedside, explained to him patient's critical medical condition with underlying lung mass with likely post obstructive pneumonia ,advanced COPD, fraility and hydropneumothorax that patient is not a candidate for intubation and will be difficult to come out of ventilator son agreed for DNR DNI will admit patient on high-flow oxygen for treatment of acute worsening COPD exacerbation due to underlying post obstructive pneumonia and hydropneumothorax. The patient is admitted to telemetry, currently with her son. She is at this point nonverbal. Appears to be somnolent with Kussmaul breathing. Therefore requested an ABG demonstrating acute hypercarbic respiratory failure. Her pinpointed pupils. Explained to the family that she is critically ill and that she is in the process of dying. She was offered a chest tube. 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 Explained to the family that the chest tube will help re-expand the lung to some degree. However, the air leak will likely persist due to her significant emphysema and likely due to likely a lung mass. Based on the fact that she is hypercarbic right now the patient appears to be dyspneic and would benefit from PULLER THROUGH status. The son, Elie is present and I did speak to him in length about the situation. He understands. He is going to wait for his daughters and also other family members to come and will make the patient PULLER THROUGH. Review of Systems Review of Systems: Yes Unobtainable due to mental status PMFSH Past Medical History Medical History (Updated 05/01/23 @ 09:39 by Adam Thompson MD) Secondary spontaneous pneumothorax H/O malignant neoplasm of lung Pulmonary nodules Hypoxemia COPD (chronic obstructive pulmonary disease) Family History Family History Father No problems noted. Mother CAD (coronary artery disease) Surgical History Surgical History Hx of mastectomy Social History Social History Household Members: None Housing: Apartment Patient Tobacco Use Status: Former Tobacco user Years Smoked: 56 Smoked in Last 30 Days: No Use of substances other than those prescribed or required for medical reasons: No Currently Displaying Signs/Symptoms of Drug Intoxication Withdrawal: No Have you been hit, kicked, punched, or otherwise hurt by someone within the past year? If so, by whom?: No Do you feel safe in your current relationship?: No Current Relationship Is there a partner from a previous relationship who is making you feel unsafe now?: No Are you made to feel afraid or neglected: No Advance Directives: No Advance Directives Information Provided: No Do you have thoughts of harming others: None Do you have a plan to hurt others: No Plan Recently lost weight without trying: Yes Eating poorly because of decreased appetite: Yes Patient : No Meds Allergies Allergy/AdvReac Type Severity Reaction Status Date / Time No Known Allergies Allergy Unknown NOT Verified 04/30/23 09:32 APPLICABLE Active Medications: Current Medications Acetaminophen (Acetaminophen 325 Mg Tablet) 650 mg PO Q6H PRN PRN Reason: Pain, Mild (Pain Scale 1-3) Amlodipine Besylate (Amlodipine Besylate 2.5 Mg Tablet) 2.5 mg PO DAILY [facility]; Protocol Ascorbic Acid (Ascorbic Acid 500 Mg Tablet) 500 mg PO DAILY [facility] Aspirin (Aspirin Enteric Coated 81 Mg Tablet.) 81 mg PO DAILY [facility] Benzonatate (Benzonatate 100 Mg Capsule) 100 mg PO TID PRN PRN Reason: Cough Docusate Sodium (Docusate Sodium 100 Mg Capsule) 100 mg PO DAILY PRN PRN Reason: Constipation Enoxaparin Sodium (Enoxaparin Sodium 40 Mg/0.4 Ml Syringe) 40 mg SUBCUT Q24H [facility] Last Admin: 04/30/23 20:47 Dose: 40 mg Ferrous Sulfate (Ferrous Sulfate 324 Mg Tablet.) 324 mg PO DAILY [facility] Fluticasone/Umeclidinium/Vilanterol (Fluticasone/Umeclidinium/Vilanterol 100/62.5/25 Blst.W.Dev) 1 puff INHALE RDAILY [facility] Last Admin: 05/01/23 07:29 Dose: Not Given Piperacillin Sod/Tazobactam (Sod 3.375 gm/ Sodium Chloride) 50 mls @ 100 mls/hr IV Q6H [facility] Last Admin: 05/01/23 08:14 Dose: 100 mls/hr Levalbuterol HCl (Levalbuterol Hcl 1.25 Mg/3 Ml Vial.Neb) 1.25 mg INHALE RQ4H WHILE AWAKE [facility] Last Admin: 05/01/23 07:26 Dose: 1.25 mg Lorazepam (Lorazepam 2 Mg/Ml Vial) 0.5 mg IVPUSH Q4H PRN PRN Reason: anxiety/restlessness Last Admin: 05/01/23 04:56 Dose: 0.5 mg Melatonin (Melatonin 3 Mg Tablet) 6 mg PO BEDTIME PRN PRN Reason: Insomnia Methylprednisolone Sodium Succinate (Methylprednisolone Sod Succ 40 Mg/Ml Vial) 40 mg IVPUSH Q12H [facility] Last Admin: 05/01/23 08:11 Dose: 40 mg Morphine Sulfate (Morphine Sulfate 4 Mg/Ml Cartridge) 3 mg IVPUSH Q2H PRN; Protocol PRN Reason: Pain, Severe (Pain Scale 7-10) Last Admin: 05/01/23 08:17 Dose: 3 mg Multivitamins/Vitamin C (Multivitamin Tablet) 1 tab PO DAILY [facility] Ondansetron HCl (Ondansetron Hcl 4 Mg/2 Ml Vial) 4 mg IVPUSH Q8H PRN PRN Reason: Nausea and Vomiting Oxycodone HCl (Oxycodone Hcl Immed Release 5 Mg Tablet) 7.5 mg PO Q6H PRN PRN Reason: Pain, Moderate(Pain Scale 4-6) Sodium Chloride (0.9 % Sodium Chloride Flush 3 Ml Syringe) 3 ml IVFLUSH QSHIFT [facility] Last Admin: 05/01/23 08:21 Dose: 3 ml Home Medications Medication Instructions Recorded Confirmed Last Taken Type aspirin 81 mg tablet,delayed 81 mg PO DAILY 11/05/20 04/30/23 Unknown History release (Adult Aspirin Regimen) ferrous sulfate 325 mg (65 mg 325 mg PO DAILY 11/05/20 04/30/23 Unknown History iron) tablet oxycodone-acetaminophen 7.5 mg-325 1 tab PO Q6H PRN Pain 11/05/20 04/30/23 Unknown History mg tablet multivitamin (Daily Multi-Vitamin 1 tab PO DAILY 06/22/22 04/30/23 Unknown History tablet) ascorbic acid (vitamin C) 500 mg 500 mg PO DAILY 12/19/22 04/30/23 Unknown History capsule food supplemt, lactose-reduced 1 ea PO TID 04/30/23 04/30/23 Unknown History (Ensure Original oral liquid) Physical Exam Vital Signs: Vital Signs: Last Vital Signs Temp 97.2 F 05/01/23 07:53 Pulse 108 H 05/01/23 07:53 Resp 20 05/01/23 07:53 BP 106/68 05/01/23 07:53 Pulse Ox 100 05/01/23 07:53 O2 Del Method High Flow Nasal C annula 05/01/23 07:53 O2 Flow Rate 45 05/01/23 07:53 FiO2 77 05/01/23 07:53 BMI result Body Mass Index 17.8 Const: General: ill appearing and lethargic Orientation/consciousness: lethargic HEENT: Head: Yes normocephalic Eyes: Pupils: Pinpoint pupils Neck: Neck: Yes supple Chest: Chest palpation & inspection: normal inspection of the chest Resp: Effort & Inspection: labored and paradoxical thoraco-abdominal movements Cardio: Heart sounds: S1 normal heart sound present and S2 normal heart sound present GI: Palpation (GI): Soft to palpation Skin: General skin exam: no rashes or lesions noted Extrem: General: No cyanosis Results Laboratory Findings 05/01/23 08:01 05/01/23 08:01 ABG, PT/INR, D-dimer: PT/INR, D-dimer PT 11.1 SEC (11.1-13.3) 04/30/23 09:55 INR 0.9 (0.9-1.1) 04/30/23 09:55 Abnormal lab findings: Abnormal Labs 04/30/23 04/30/23 04/30/23 09:53 09:55 14:11 WBC 15.4 H RBC 3.68 L Hgb 9.9 L Hct 32.4 L MCH 26.9 L MCHC 30.6 L RDW 18.9 H MPV 9.3 L Immature Gran % (Auto) 0.6 H Neut % (Auto) 86.1 H Lymph % (Auto) 6.9 L Lymph # (Auto) 1.1 L Abs Immat Gran (auto) 0.09 H Absolute Neuts (auto) 13.3 H ABG pH at Pt Temp ABG pCO2 at Pt Temp ABG pO2 at Pt Temp ABG HCO3 Chloride BUN Random Glucose 205 H Lactic Acid 2.1 H* Lactic Acid F/U @ 2Hr Lactic Acid F/U @ 4Hr Alkaline Phosphatase 126 H Troponin I High Sens 249.5 H* 435.6 H* D B-Natriuretic Peptide 190 H 04/30/23 04/30/23 05/01/23 15:45 18:53 08:01 WBC 13.4 H RBC 4.06 L Hgb 11.0 L Hct 36.6 L MCH MCHC 30.1 L RDW 19.2 H MPV Immature Gran % (Auto) Neut % (Auto) Lymph % (Auto) Lymph # (Auto) Abs Immat Gran (auto) Absolute Neuts (auto) ABG pH at Pt Temp ABG pCO2 at Pt Temp ABG pO2 at Pt Temp ABG HCO3 Chloride 110 H BUN 23 H Random Glucose Lactic Acid Lactic Acid F/U @ 2Hr 4.1 H* Lactic Acid F/U @ 4Hr 2.5 H* Alkaline Phosphatase Troponin I High Sens 611.9 H* B-Natriuretic Peptide 05/01/23 08:56 WBC RBC Hgb Hct MCH MCHC RDW MPV Immature Gran % (Auto) Neut % (Auto) Lymph % (Auto) Lymph # (Auto) Abs Immat Gran (auto) Absolute Neuts (auto) ABG pH at Pt Temp 7.24 L ABG pCO2 at Pt Temp 67 H* ABG pO2 at Pt Temp 179 H ABG HCO3 29 H Chloride BUN Random Glucose Lactic Acid Lactic Acid F/U @ 2Hr Lactic Acid F/U @ 4Hr Alkaline Phosphatase Troponin I High Sens B-Natriuretic Peptide Assessment and Plan (1) Acute hypercapnic respiratory failure: Status: Acute (2) Secondary spontaneous pneumothorax: Status: Acute (3) COPD exacerbation: Status: Acute (4) Acute and chronic respiratory failure with hypoxia: Status: Acute (5) Pulmonary nodules: Status: Acute (6) COPD (chronic obstructive pulmonary disease): Status: Acute (7) Hydropneumothorax: Status: Acute Plan The patient is critically ill demonstrating acute hypercarbic respiratory failure. The patient is already somnolent with pinpoint pupils struggling to breathe. I spoke and then with her son about her current situation. She is actively dying. Explained to the son that I do not believe that a chest tube will help with the respiratory failure in view of her extensive emphysema likely recurrent lung cancer and deconditioned state. Medical interventions may prolong her suffering and the patient's son will talk to the family about changing her code status PULLER THROUGH. There were it for more 1 more family member. Explained to them that the PULLER THROUGH will allow her to have a with comfort and dignity. Recommendations: Would not recommend a chest tube at this time in view of her critical state actively dying. She is already DNR. Chest tube would not fix the underlying issue which is likely a secondary spontaneous pneumothorax likely from her recurrent masslike density. Continue oxygen support Awaiting family to come into the hospital in order to make her PULLER THROUGH Procedures Date of Service Date of Service: 05/01/23
--- NOTE | 2023-05-01 10:11 | MHC.CM.PN ---
PER MD, PT IS NOW BRAND ATTENDANT STATUS FAMILY AT BEDSIDE
--- NOTE | 2023-05-01 10:13 | P.EN_ITS ---
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
--- NOTE | 2023-05-01 10:13 | PM.EVENT ---
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
--- NOTE | 2023-05-01 11:30 | HO.THORCON_ITS ---
History of Present Illness Consult details Consult date: 05/01/23 Narrative: Patient is 82-year-old female with a plethora of comorbidities and medical issues including advanced COPD, lung cancer treated with radiation therapy, emphysema, and collection of other respiratory issues who presents with shortness of breath. Please refer to hospitalist's H and P for further details regarding this. Part of her workup demonstrated a right hydropneumothorax Chart was reviewed and patient evaluated PMFSH Past Medical History Medical History (Updated 05/01/23 @ 09:39 by Adam Thompson MD) Secondary spontaneous pneumothorax H/O malignant neoplasm of lung Pulmonary nodules Hypoxemia COPD (chronic obstructive pulmonary disease) Family History Family History Father No problems noted. Mother CAD (coronary artery disease) Surgical History Surgical History Hx of mastectomy Social History Social History Household Members: None Housing: Apartment Patient Tobacco Use Status: Former Tobacco user Years Smoked: 56 Smoked in Last 30 Days: No Use of substances other than those prescribed or required for medical reasons: No Currently Displaying Signs/Symptoms of Drug Intoxication Withdrawal: No Have you been hit, kicked, punched, or otherwise hurt by someone within the past year? If so, by whom?: No Do you feel safe in your current relationship?: No Current Relationship Is there a partner from a previous relationship who is making you feel unsafe now?: No Are you made to feel afraid or neglected: No Advance Directives: No Advance Directives Information Provided: No Do you have thoughts of harming others: None Do you have a plan to hurt others: No Plan Recently lost weight without trying: Yes Eating poorly because of decreased appetite: Yes Patient : No service: No Meds Allergies Allergy/AdvReac Type Severity Reaction Status Date / Time No Known Allergies Allergy Unknown NOT Verified 04/30/23 09:32 APPLICABLE Active Medications: Current Medications Benzonatate (Benzonatate 100 Mg Capsule) 100 mg PO TID PRN PRN Reason: Cough Docusate Sodium (Docusate Sodium 100 Mg Capsule) 100 mg PO DAILY PRN PRN Reason: Constipation Lorazepam (Lorazepam 2 Mg/Ml Vial) 0.5 mg IVPUSH Q4H PRN PRN Reason: anxiety/restlessness Last Admin: 05/01/23 04:56 Dose: 0.5 mg Melatonin (Melatonin 3 Mg Tablet) 6 mg PO BEDTIME PRN PRN Reason: Insomnia Morphine Sulfate (Morphine Sulfate 4 Mg/Ml Cartridge) 3 mg IVPUSH Q1H PRN; Protocol PRN Reason: Pain, Severe (Pain Scale 7-10) Last Admin: 05/01/23 10:17 Dose: 3 mg Ondansetron HCl (Ondansetron Hcl 4 Mg/2 Ml Vial) 4 mg IVPUSH Q8H PRN PRN Reason: Nausea and Vomiting Oxycodone HCl (Oxycodone Hcl Immed Release 5 Mg Tablet) 7.5 mg PO Q6H PRN PRN Reason: Pain, Moderate(Pain Scale 4-6) Sodium Chloride (0.9 % Sodium Chloride Flush 3 Ml Syringe) [facility] Last Admin: 05/01/23 08:21 Dose: 3 ml Home Medications Medication Instructions Recorded Confirmed Last Taken Type aspirin 81 mg tablet,delayed 81 mg PO DAILY 11/05/20 04/30/23 Unknown History release (Adult Aspirin Regimen) ferrous sulfate 325 mg (65 mg 325 mg PO DAILY 11/05/20 04/30/23 Unknown History iron) tablet oxycodone-acetaminophen 7.5 mg-325 1 tab PO Q6H PRN Pain 11/05/20 04/30/23 Unknown History mg tablet multivitamin (Daily Multi-Vitamin 1 tab PO DAILY 06/22/22 04/30/23 Unknown History tablet) ascorbic acid (vitamin C) 500 mg 500 mg PO DAILY 12/19/22 04/30/23 Unknown History capsule food supplemt, lactose-reduced 1 ea PO TID 04/30/23 04/30/23 Unknown History (Ensure Original oral liquid) Physical Exam 2 Vital Signs: Vital Signs: Last Vital Signs Temp 97.2 F 05/01/23 07:53 Pulse 108 H 05/01/23 07:53 Resp 20 05/01/23 07:53 BP 106/68 05/01/23 07:53 Pulse Ox 100 05/01/23 07:53 O2 Del Method High Flow Nasal C annula 05/01/23 07:53 O2 Flow Rate 45 05/01/23 07:53 FiO2 77 05/01/23 07:53 BMI result Body Mass Index 17.8 Const: Other: Very elderly frail debilitated female. Patient was evaluated with her son present. Chest: Other: Diminished breath sounds right. Lung sounds consistent with COPD. GI: Other: Abdomen is soft. Results Labs 05/01/23 08:01 05/01/23 08:01 Labs: Abnormal lab results 04/30/23 04/30/23 04/30/23 Range/Units 14:11 15:45 18:53 WBC (4.8-10.8) X10*3/uL RBC (4.20-5.50) X10*6/uL Hgb (12.0-16.0) g/dl Hct (37.0-47.0) % MCHC (31.0-35.0) g/dl RDW (11.0-16.0) % ABG pH at Pt Temp (7.35-7.45) ABG pCO2 at Pt Temp (32-45) mmHg ABG pO2 at Pt Temp (83-108) mmHg ABG HCO3 (22-26) mmol/L Chloride (96-108) mmol/L BUN (9-16) mg/dL Lactic Acid F/U @ 2Hr 4.1 H* (0.5-2.0) mmol/L Lactic Acid F/U @ 4Hr 2.5 H* (0.5-2.0) mmol/L Troponin I High Sens 435.6 H* D 611.9 H* (<3.5-17.0) ng/L 05/01/23 05/01/23 Range/Units 08:01 08:56 WBC 13.4 H (4.8-10.8) X10*3/uL RBC 4.06 L (4.20-5.50) X10*6/uL Hgb 11.0 L (12.0-16.0) g/dl Hct 36.6 L (37.0-47.0) % MCHC 30.1 L (31.0-35.0) g/dl RDW 19.2 H (11.0-16.0) % ABG pH at Pt Temp 7.24 L (7.35-7.45) ABG pCO2 at Pt Temp 67 H* (32-45) mmHg ABG pO2 at Pt Temp 179 H (83-108) mmHg ABG HCO3 29 H (22-26) mmol/L Chloride 110 H (96-108) mmol/L BUN 23 H (9-16) mg/dL Lactic Acid F/U @ 2Hr (0.5-2.0) mmol/L Lactic Acid F/U @ 4Hr (0.5-2.0) mmol/L Troponin I High Sens (<3.5-17.0) ng/L Short CBC 05/01/23 Range/Units 08:01 WBC 13.4 H (4.8-10.8) X10*3/uL Hgb 11.0 L (12.0-16.0) g/dl Hct 36.6 L (37.0-47.0) % Plt Count 253 (160-400) X10*3/uL BMP 05/01/23 08:01 Sodium 145 Potassium 4.7 Chloride 110 H Carbon Dioxide 24 BUN 23 H Creatinine 0.67 Calcium 9.0 All other labs normal. Assessment and Plan (1) Secondary spontaneous pneumothorax: Status: Acute (2) Acute hypercapnic respiratory failure: Status: Acute (3) Right upper lobe consolidation: Status: Acute (4) Hydropneumothorax: Status: Acute (5) COPD exacerbation: Status: Acute Plan Having reviewed the patient's studies and scans, the current recommendation and an order was put in for IR chest tube placement and direct further therapeutic interventions based on the patient's clinical course. Patient is very debilitated and frail and is a non operative candidate . Procedures Date of Service Date of Service: 05/01/23
--- NOTE | 2023-05-01 12:06 | MHC.CLN ---
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
[2023-05-01] MEDS: Morphine Sulfate 4 MG/ML CARTRIDGE IVPUSH ×2 (13:08→16:07)
[2023-05-01 13:41] LABS: ABG Refer to POC result
--- NOTE | 2023-05-01 15:49 | P.PNIM_ITS ---
Subjective Subjective Date of Service: 05/02/23 Interval History: This morning patient noted to be somnolent with Kussmaul breathing, oxygen saturation mid 80s on high-flow oxygen. Being managed for acute on chronic hypoxic respiratory failure due to COPD exacerbation/postobstructive pneumonia due to possible endobronchial lesion and hydropneumothorax. Review of Systems Unable to obtain due to somnolence lethargy. Physical Exam 2 Vital Signs: Vital Signs: Last Vital Signs Temp 97.2 F 05/01/23 07:53 Pulse 108 H 05/01/23 07:53 Resp 20 05/01/23 07:53 BP 106/68 05/01/23 07:53 Pulse Ox 100 05/01/23 07:53 O2 Del Method High Flow Nasal C annula 05/01/23 07:53 O2 Flow Rate 45 05/01/23 07:53 FiO2 77 05/01/23 07:53 BMI result Body Mass Index 17.8 Const: Other: General frail, ill-appearing somnolent Neck no JVD. CVS tachy, regular rate rhythm, Respiratory lungs diminished breath sound, paradoxical thoracoabdominal movement, use of accessory muscles tachypneic Gastrointestinal abdomen soft, bowel sounds audible Extremities no edema. Neuro pupils pinpoint Skin no cyanosis Objective Data Active Medications Benzonatate (Benzonatate 100 Mg Capsule) 100 mg PO TID PRN PRN Reason: Cough Docusate Sodium (Docusate Sodium 100 Mg Capsule) 100 mg PO DAILY PRN PRN Reason: Constipation Lorazepam (Lorazepam 2 Mg/Ml Vial) 0.5 mg IVPUSH Q4H PRN PRN Reason: anxiety/restlessness Last Admin: 05/01/23 14:53 Dose: 0.5 mg Documented By: CLAUDINE Melatonin (Melatonin 3 Mg Tablet) 6 mg PO BEDTIME PRN PRN Reason: Insomnia Morphine Sulfate (Morphine Sulfate 4 Mg/Ml Cartridge) 4 mg IVPUSH Q1H PRN; Protocol PRN Reason: Pain, Severe (Pain Scale 7-10) Last Admin: 05/01/23 13:08 Dose: 4 mg Documented By: CLAUDINE Ondansetron HCl (Ondansetron Hcl 4 Mg/2 Ml Vial) 4 mg IVPUSH Q8H PRN PRN Reason: Nausea and Vomiting Oxycodone HCl (Oxycodone Hcl Immed Release 5 Mg Tablet) 7.5 mg PO Q6H PRN PRN Reason: Pain, Moderate(Pain Scale 4-6) Sodium Chloride (0.9 % Sodium Chloride Flush 3 Ml Syringe) 3 ml IVFLUSH QSHIFT [facility] Last Admin: 05/01/23 08:21 Dose: 3 ml Documented By: CLAUDINE Labs 05/01/23 08:01 05/01/23 08:01 Labs: Laboratory Results - last 24 hr 04/30/23 04/30/23 04/30/23 15:45 15:47 18:53 MCV MCH MCHC RDW Plt Count MPV Absolute Nucleated RBC Nucleated RBC % (auto) O2 Saturation ABG pH at Pt Temp ABG pCO2 at Pt Temp ABG pO2 at Pt Temp ABG HCO3 ABG Base Excess (Actual) VBG pH VBG pCO2 VBG pO2 VBG HCO3 VBG O2 Saturation VBG Base Excess Anion Gap Estim Creat Clear Calc Estimated GFR Random Glucose Lactic Acid F/U @ 2Hr 4.1 H* Lactic Acid F/U @ 4Hr 2.5 H* Calcium Magnesium 1.8 Troponin I High Sens 611.9 H* 04/30/23 05/01/23 05/01/23 21:45 08:01 08:56 MCV 90.1 MCH 27.1 MCHC 30.1 L RDW 19.2 H Plt Count 253 MPV 10.2 Absolute Nucleated RBC 0.000 Nucleated RBC % (auto) 0.0 O2 Saturation 100.0 ABG pH at Pt Temp 7.24 L ABG pCO2 at Pt Temp 67 H* ABG pO2 at Pt Temp 179 H ABG HCO3 29 H ABG Base Excess (Actual) 0.4 VBG pH 7.33 VBG pCO2 45 VBG pO2 189 VBG HCO3 24 VBG O2 Saturation 100.0 VBG Base Excess -1.7 Anion Gap 16 Estim Creat Clear Calc 42.1 Estimated GFR > 60 Random Glucose 113 Lactic Acid F/U @ 2Hr Lactic Acid F/U @ 4Hr Calcium 9.0 Magnesium Troponin I High Sens Microbiology Microbiology Results: Microbiology 04/30/23 10:12 Blood Culture - Preliminary Blood - Venous No growth after 24 hours. 04/30/23 09:54 Blood Culture - Preliminary Blood - Venous No growth after 24 hours. 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. Patient admitted to [facility] with a diagnosis of Acute on chronic hypoxic respiratory failure due to COPD exacerbation/post obstructive pneumonia due to possible endobronchial lesion/hydropneumothorax, this morning patient noted to be in significant respiratory distress , with tachypnea, using accessory muscles, somnolent, with pinpoint pupils, ABGs obtained showed acute hypercarbic respiratory failure, informed patient's son about patient's critical condition and continued treatment would prolonged patient suffering and discuss comfort measures only, patient also evaluated by construction trades contractor who also spoke with son who agreed for ASBESTOS REMOVAL WORKER. Therefore patient placed on iv morphine and IV Ativan, continue oxygen support all medications discontinued. Diagnosis Acute on chronic hypoxic and hypercarbic respiratory failure Acute exacerbation of end-stage COPD Postobstructive pneumonia and sepsis Spontaneous pneumothorax Moderate protein calorie malnutrition Recurrent lung cancer Code status ASBESTOS REMOVAL WORKER In my clinical judgment patient will require continued inpatient hospitalization for comfort measures on IV morphine, IV Ativan Quality Stroke Does the patient have a stroke diagnosis?: No VTE Prior VTE?: No VTE Risk Level:: Medical - moderate - high VTE Device Contraindication: Treatment Not Indicated VTE Drug Contraindication: N/A - Med Ordered
[2023-05-01] MEDS: Morphine Sulfate 4 MG/ML CARTRIDGE 6 MG IVPUSH ×3 (17:39→21:03)
[2023-05-01] MEDS: Scopolamine 1.5 MG PATCH.TD.3 EAR-BEHIND (21:04)
--- NOTE | 2023-05-01 21:43 | PC.NURSE ---
Addendum entered by Cecy Angulo RN 05/02/23 03:27: Previous note correction due to typo. Initial note was supposed to read: Will initiate WATERSHED TENDER when med arrives FROM pharmacy (not plan). Original Note: Assumed care of patient at 19:00. Pt is DIRECTOR PHYSICAL with 6mg IVP morphine q1h prn orders on assuming care. RR 24 on assuming care. Covering Dr. Vital notified and requested to change q1h IVP to morphine WATERSHED TENDER. Order placed with written okay to initiate gtt at 6mg/hr as this was patient's q1h IVP dose. Discussed with nursing housekeeping/laundry supervisor, and scenario writer verified this with pharmacy and requested the medication x2 as it as not currently stocked in any floor's pyxis. Will initiate WATERSHED TENDER when med arrives plan pharmacy. Pt continues with IVP until then for optimal comfort. Scopolamine patch placed for rattle. Patient's son remains at bedside to assist in providing comfort to patient. Plan of care continues.
[2023-05-01] MEDS: Morphine Sulfate/NS 100 MG/100 ML PLAST..BAG 6 MG IVCONT (22:33)
--- NOTE | 2023-05-01 22:37 | PC.NURSE ---
Morphine WARDROBE CUSTODIAN initiated at 6mg/hr per Dr. Vital orders at 22:33 with RN witness/nursing welding supervisor Rosemary. RR 16 at time of initiation.
[2023-05-02 00:36] VITALS: RESP 12
[2023-05-02 02:34] VITALS: RESP 12
[2023-05-02 05:00] VITALS: RESP 12
--- NOTE | 2023-05-02 07:22 | PC.NURSE ---
RR continues 10-12bpm on morphine gtt. Patient appearing comfortable. No void this shift. Repositioned as tolerated. Pt's son remains at bedside. Nursing MALTER OPERATOR Flow Sheet handed off to oncoming RN on report given at 06:45.
--- NOTE | 2023-05-02 09:51 | PM.PNPUL ---
Subjective Subjective Date of Service: 05/02/23 Interval history: The patient was seen on exam. She is currently SUPERVISOR ELECTRIC. The summer still wondering if it was the right approach. I did encourage him that he was making the right decision based on her significant comorbidities with her advanced emphysema COPD, history of lung cancer now likely recurrence and this large hydropneumothorax. The patient already was demonstrating acute hypercarbic respiratory failure which carries a poor prognosis. Based on the spontaneous secondary pneumothorax likely from necrotic tissue from the lung will result in a prolonged air leak even with a chest tube in place. Chest tube itself would just be a temporizing measure that will not provide any curative effect. The patient's son understood. He felt that she needed additional morphine which we did provide because she would be uncomfortable with any kind of changing. Objective Data Labs 05/01/23 08:01 05/01/23 08:01 Microbiology Microbiology Results: Microbiology 04/30/23 10:12 Blood - Venous Blood Culture - Preliminary No growth after 24 hours. 04/30/23 09:54 Blood - Venous Blood Culture - Preliminary No growth after 24 hours. Review of Systems Review of Systems Yes Unobtainable due to mental condition and Unobtainable due to mental status Physical Exam Vital Signs: Vital Signs: Last Vital Signs Temp 97.2 F 05/01/23 07:53 Pulse 102 H 05/01/23 19:43 Resp 12 05/02/23 05:00 BP 106/68 05/01/23 07:53 Pulse Ox 100 05/01/23 07:53 O2 Del Method Nasal Cannula 05/01/23 19:43 O2 Flow Rate 2 05/01/23 19:43 FiO2 77 05/01/23 07:53 BMI result Body Mass Index 17.8 Const: General: ill appearing Eyes: Other: closed Neck: Neck: Yes supple Chest: Chest palpation & inspection: normal inspection of the chest Resp: Effort & Inspection: decreased respiratory effort Procedures Date of Service Date of Service: 05/02/23 Assessment and Plan Assessment and plan (1) Secondary spontaneous pneumothorax: Status: Acute (2) Acute hypercapnic respiratory failure: Status: Acute (3) Right upper lobe consolidation: Status: Acute (4) Hydropneumothorax: Status: Acute (5) COPD exacerbation: Status: Acute (6) H/O malignant neoplasm of lung: Problem details: Patient was found to have a malignant nodule in left upper lobe in 2017, Has been treated with full course of radiation therapy. Patient is a poor surgical risk because of her end-stage chronic obstructive pulmonary disease . She is being followed by the oncology service at [facility] .Now with likely reoccurrence. Status: Acute Plan Agree with SUPERVISOR ELECTRIC Spoke to family and answered all their questions Morphine gtt, PRN morphine when moving Time Spent With Patient Time: Total time managing care of this patient today ____ minutes. Progress Note: Quality Stroke Does the patient have a stroke diagnosis?: No
[2023-05-02] MEDS: Morphine Sulfate 4 MG/ML CARTRIDGE 6 MG IVPUSH ×3 (10:01→21:58)
--- NOTE | 2023-05-02 14:42 | P.PNIM_ITS ---
Subjective Subjective Date of Service: 05/02/23 Interval History: Being followed for PRODUCTION DRILLING MACHINE OPERATOR Patient does not appear to be in distress respiratory rate of around 12, unresponsive. Review of Systems Unable to obtain patient unresponsive. Physical Exam 2 Vital Signs: Vital Signs: Last Vital Signs Temp 97.2 F 05/01/23 07:53 Pulse 102 H 05/01/23 19:43 Resp 12 05/02/23 05:00 BP 106/68 05/01/23 07:53 Pulse Ox 100 05/01/23 07:53 O2 Del Method Nasal Cannula 05/01/23 19:43 O2 Flow Rate 2 05/01/23 19:43 FiO2 77 05/01/23 07:53 BMI result Body Mass Index 17.8 Const: Other: General unresponsive, shallow breath sounds Lungs clear to auscultation Heart regular Extremities no edema Objective Data Active Medications Benzonatate (Benzonatate 100 Mg Capsule) 100 mg PO TID PRN PRN Reason: Cough Docusate Sodium (Docusate Sodium 100 Mg Capsule) 100 mg PO DAILY PRN PRN Reason: Constipation Morphine Sulfate (Morphine Sulfate/Ns) 100 mg in 100 mls @ 0 mls/hr IVCONT .Q0M [facility]; Protocol Last Admin: 05/01/23 22:33 Dose: 6 mg/hr, 6 mls/hr Documented By: RYAN Lorazepam (Lorazepam 2 Mg/Ml Vial) 1 mg IVPUSH Q4H PRN PRN Reason: anxiety/restlessness Melatonin (Melatonin 3 Mg Tablet) 6 mg PO BEDTIME PRN PRN Reason: Insomnia Morphine Sulfate (Morphine Sulfate 4 Mg/Ml Cartridge) 6 mg IVPUSH Q1H PRN; Protocol PRN Reason: Pain, Severe (Pain Scale 7-10) Last Admin: 05/02/23 10:01 Dose: 6 mg Documented By: PARAMJIT Ondansetron HCl (Ondansetron Hcl 4 Mg/2 Ml Vial) 4 mg IVPUSH Q8H PRN PRN Reason: Nausea and Vomiting Oxycodone HCl (Oxycodone Hcl Immed Release 5 Mg Tablet) 7.5 mg PO Q6H PRN PRN Reason: Pain, Moderate(Pain Scale 4-6) Scopolamine (Scopolamine 1.5 Mg Patch.Td.3) 1.5 mg EAR-BEHIND Q72H [facility] Last Admin: 05/01/23 21:04 Dose: 1.5 mg Documented By: RYAN Sodium Chloride (0.9 % Sodium Chloride Flush 3 Ml Syringe) 3 ml IVFLUSH QSHIFT [facility] Last Admin: 05/02/23 08:35 Dose: Not Given Documented By: PARAMJIT Non-Admin Reason: IV Running Labs 05/01/23 08:01 05/01/23 08:01 Microbiology Microbiology Results: Microbiology 04/30/23 10:12 Blood Culture - Preliminary Blood - Venous No growth after 48 hours. 04/30/23 09:54 Blood Culture - Preliminary Blood - Venous No growth after 48 hours. 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 Patient admitted to [facility] with a diagnosis of Acute on chronic hypoxic respiratory failure due to COPD exacerbation/post obstructive pneumonia due to possible endobronchial lesion/hydropneumothorax, pt. noted to be in significant respiratory distress on 04/30, with tachypnea, using accessory muscles, somnolent, with pinpoint pupils, ABGs obtained showed acute hypercarbic respiratory failure, Due to poor prognosis with acute hypercarbic respiratory failure, with spontaneous secondary pneumothorax likely due to advanced COPD and possible recurrent tumor explained to patient's son that patient will not respond to current medical management and chest tube will not be curative and will prolonged patient suffering,after lengthy discussion in the presence of chief development officer patient was made PRODUCTION DRILLING MACHINE OPERATOR. All medications and lab draws discontinued Continue IV morphine SATELLITE DISH REPAIRER 6 mg q.1 hour and also IV morphine 6 mg q.1 hour with change in position, Diagnosis Acute on chronic hypoxic and hypercarbic respiratory failure Acute exacerbation of end-stage COPD Postobstructive pneumonia and sepsis Spontaneous pneumothorax Moderate protein calorie malnutrition Recurrent lung cancer Code status PRODUCTION DRILLING MACHINE OPERATOR In my clinical judgment patient will require continued inpatient hospitalization for comfort measures on IV morphine, IV Ativan Quality Stroke Does the patient have a stroke diagnosis?: No VTE Prior VTE?: No VTE Risk Level:: Medical - moderate - high VTE Device Contraindication: Treatment Not Indicated VTE Drug Contraindication: N/A - Med Ordered
[2023-05-02 15:14] VITALS: RESP 12
[2023-05-02] MEDS: Morphine Sulfate/NS 100 MG/100 ML PLAST..BAG 6 MG IVCONT (15:37)
[2023-05-02 17:26] VITALS: RESP 12
[2023-05-02 21:58] VITALS: RESP 12
[2023-05-02] MEDS: LORazepam 2 MG/ML VIAL 1 MG IVPUSH (22:35)
[2023-05-03 05:17] VITALS: RESP 11
[2023-05-03] MEDS: Morphine Sulfate 4 MG/ML CARTRIDGE 6 MG IVPUSH ×4 (05:17→21:33)
[2023-05-03] MEDS: LORazepam 2 MG/ML VIAL 1 MG IVPUSH ×3 (05:17→15:57)
[2023-05-03] MEDS: Morphine Sulfate/NS 100 MG/100 ML PLAST..BAG 6 MG IVCONT ×2 (07:54→23:51)
--- NOTE | 2023-05-03 11:02 | MHC.CLN ---
F/U PT IS NOW ASSEMBLY RIVETER-PRIMARY GOAL IS COMFORT DIET RX: REGULAR-APPROPRIATE WILL FOLLOW WITH TEAM AND PROVIDE SUPPORT NEEDED
--- NOTE | 2023-05-03 12:26 | P.PNIM_ITS ---
Subjective Subjective Date of Service: 05/03/23 Interval History: appears comfortable son at bedside; updated Review of Systems Review of Systems: Yes Unobtainable due to mental status Physical Exam 2 Vital Signs: Vital Signs: Last Vital Signs Temp 97.2 F 05/01/23 07:53 Pulse 102 H 05/01/23 19:43 Resp 11 L 05/03/23 05:17 BP 106/68 05/01/23 07:53 Pulse Ox 100 05/01/23 07:53 O2 Del Method Nasal Cannula 05/01/23 19:43 O2 Flow Rate 2 05/01/23 19:43 FiO2 77 05/01/23 07:53 BMI result Body Mass Index 17.8 Gen: in no acute distress Lungs: clear to auscultation bilaterally, agonal respirations Heart: regular rate/rhythm Neuro: somnolent Objective Data Active Medications Benzonatate (Benzonatate 100 Mg Capsule) 100 mg PO TID PRN PRN Reason: Cough Docusate Sodium (Docusate Sodium 100 Mg Capsule) 100 mg PO DAILY PRN PRN Reason: Constipation Morphine Sulfate (Morphine Sulfate/Ns) 100 mg in 100 mls @ 0 mls/hr IVCONT .Q0M [facility]; Protocol Last Admin: 05/03/23 07:54 Dose: 6 mg/hr, 6 mls/hr Documented By: KELSI Lorazepam (Lorazepam 2 Mg/Ml Vial) 1 mg IVPUSH Q4H PRN PRN Reason: anxiety/restlessness Last Admin: 05/03/23 09:55 Dose: 1 mg Documented By: KELSI Melatonin (Melatonin 3 Mg Tablet) 6 mg PO BEDTIME PRN PRN Reason: Insomnia Morphine Sulfate (Morphine Sulfate 4 Mg/Ml Cartridge) 6 mg IVPUSH Q1H PRN; Protocol PRN Reason: Pain, Severe (Pain Scale 7-10) Last Admin: 05/03/23 09:55 Dose: 6 mg Documented By: KELSI Ondansetron HCl (Ondansetron Hcl 4 Mg/2 Ml Vial) 4 mg IVPUSH Q8H PRN PRN Reason: Nausea and Vomiting Oxycodone HCl (Oxycodone Hcl Immed Release 5 Mg Tablet) 7.5 mg PO Q6H PRN PRN Reason: Pain, Moderate(Pain Scale 4-6) Scopolamine (Scopolamine 1.5 Mg Patch.Td.3) 1.5 mg EAR-BEHIND Q72H [facility] Last Admin: 05/01/23 21:04 Dose: 1.5 mg Documented By: RYAN Sodium Chloride (0.9 % Sodium Chloride Flush 3 Ml Syringe) 3 ml IVFLUSH QSHIFT [facility] Last Admin: 05/03/23 07:49 Dose: Not Given Documented By: KELSI Non-Admin Reason: IV Running Labs 05/01/23 08:01 05/01/23 08:01 Microbiology Microbiology Results: Microbiology 04/30/23 10:12 Blood Culture - Preliminary Blood - Venous No growth after 48 hours. 04/30/23 09:54 Blood Culture - Preliminary Blood - Venous No growth after 48 hours. 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 Quality Stroke Does the patient have a stroke diagnosis?: No VTE Prior VTE?: No VTE Risk Level:: Medical - moderate - high VTE Device Contraindication: Treatment Not Indicated VTE Drug Contraindication: N/A - Med Ordered
--- NOTE | 2023-05-03 13:03 | MHC.CM.PN ---
EMR reviewed and per MD rounds, no plan for D/C as pt on STAINED GLASS GLAZIER and remains on a continuous morphine gtt.
[2023-05-04] MEDS: Morphine Sulfate 4 MG/ML CARTRIDGE 6 MG IVPUSH ×2 (02:12→08:02)
[2023-05-04] MEDS: 0.9 % Sodium Chloride Flush 3 ML SYRINGE IVFLUSH (08:03)
--- NOTE | 2023-05-04 10:14 | P.PNIM_ITS ---
Subjective Subjective Date of Service: 05/04/23 Interval History: appears comfortable sons at bedside Review of Systems Review of Systems: Yes Unobtainable due to mental status Physical Exam 2 Vital Signs: Vital Signs: Last Vital Signs Temp 97.2 F 05/01/23 07:53 Pulse 102 H 05/01/23 19:43 Resp 11 L 05/03/23 05:17 BP 106/68 05/01/23 07:53 Pulse Ox 100 05/01/23 07:53 O2 Del Method Nasal Cannula 05/01/23 19:43 O2 Flow Rate 2 05/01/23 19:43 FiO2 77 05/01/23 07:53 BMI result Body Mass Index 17.8 Gen: in no acute distress Lungs: clear to auscultation bilaterally, agonal respirations Heart: regular rate/rhythm Neuro: somnolent Objective Data Active Medications Benzonatate (Benzonatate 100 Mg Capsule) 100 mg PO TID PRN PRN Reason: Cough Docusate Sodium (Docusate Sodium 100 Mg Capsule) 100 mg PO DAILY PRN PRN Reason: Constipation Morphine Sulfate (Morphine Sulfate/Ns) 100 mg in 100 mls @ 0 mls/hr IVCONT .Q0M [facility]; Protocol Last Admin: 05/03/23 23:51 Dose: 6 mg/hr, 6 mls/hr Documented By: CHAITANYA Lorazepam (Lorazepam 2 Mg/Ml Vial) 1 mg IVPUSH Q4H PRN PRN Reason: anxiety/restlessness Last Admin: 05/03/23 15:57 Dose: 1 mg Documented By: KELSI Melatonin (Melatonin 3 Mg Tablet) 6 mg PO BEDTIME PRN PRN Reason: Insomnia Morphine Sulfate (Morphine Sulfate 4 Mg/Ml Cartridge) 6 mg IVPUSH Q1H PRN; Protocol PRN Reason: Pain, Severe (Pain Scale 7-10) Last Admin: 05/04/23 08:02 Dose: 6 mg Documented By: ZARIA Ondansetron HCl (Ondansetron Hcl 4 Mg/2 Ml Vial) 4 mg IVPUSH Q8H PRN PRN Reason: Nausea and Vomiting Oxycodone HCl (Oxycodone Hcl Immed Release 5 Mg Tablet) 7.5 mg PO Q6H PRN PRN Reason: Pain, Moderate(Pain Scale 4-6) Scopolamine (Scopolamine 1.5 Mg Patch.Td.3) 1.5 mg EAR-BEHIND Q72H [facility] Last Admin: 05/01/23 21:04 Dose: 1.5 mg Documented By: RYAN Sodium Chloride (0.9 % Sodium Chloride Flush 3 Ml Syringe) 3 ml IVFLUSH QSHIFT [facility] Last Admin: 05/04/23 08:03 Dose: 3 ml Documented By: PHANLYM Labs 05/01/23 08:01 05/01/23 08:01 Assessment and Plan (1) Acute hypercapnic respiratory failure: Status: Acute (2) Right upper lobe consolidation: Status: Acute (3) Hydropneumothorax: Status: Acute Plan d5 82yo F with end-stage COPD, 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 Quality Stroke Does the patient have a stroke diagnosis?: No VTE Prior VTE?: No VTE Risk Level:: Medical - moderate - high VTE Device Contraindication: Treatment Not Indicated VTE Drug Contraindication: N/A - Med Ordered
--- NOTE | 2023-05-04 11:17 | PC.NURSE ---
Addendum entered by Angelita Hunt RN 05/04/23 11:19: pt passed at 1100. Original Note: pt passed at 110. notified. Wasted with 2nd nurse for 45 ml from morphine gtt bag.
--- NOTE | 2023-05-04 11:44 | PM.DDS ---
Discharge Sum: Prov Provider Primary care physician: Unknown Physician Admitting clinician: Ania Lopez Attending physician on admission: Ania Lopez Consults: 04/30/23 18:31 Consult to Thoracic Surgery Routine Consulting Provider: Teofilo Fox Reason for consultation: hydropneumothorax, apical lung mass 04/30/23 23:09 Consult to Hospice Routine Comment: End stage COPD, lung cancer, hydropneumothorax 05/01/23 07:38 Consult to Pulmonology Routine Consulting Provider: 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 Se Garcia, patient was doing fine up until yesterday this morning she woke up with shortness of breath without associated fever, chills, no cough, denies sick contacts, denies nausea vomiting, aspiration, no abdominal pain, no urinary symptoms of urgency frequency, she took her home nebulizers and continued on 2 L of home oxygen without any improvement, in the emergency room she was noted to have WBC count of 15,400 with left shift, chest x-ray showed diffuse emphysema with chronic scarring, loculated right basilar pneumothorax, CT chest showed right-sided hydropneumothorax, masslike consolidation in the right upper lobe with bronchial narrowing, advanced emphysema, old granulomatous disease, she was noted to have elevated troponin of 249.5, EKG showed sinus tachycardia with ventricular rate of 112, lactic acid was 2.1 patient was treated with IV Rocephin, blood cultures were obtained, ED provider discuss case with Dr. Fox he felt chest tube insertion would not provide significant improvement in symptoms patient treated in the emergency room with CPAP patient's symptoms improved however patient was unable to keep the CPAP and was placed back on nasal cannula but she was noted to have hypoxia therefore placed on high-flow nasal cannula during conversing with patient she developed significant respiratory distress with her respiratory rate in mid 30s, therefore she was treated with fentanyl 100 mcg and Ativan, post treatment patient respiratory rate improved for short duration but went back up to 30s at this time goal of care was discussed with Patient's son at bedside, explained to him patient's critical medical condition with underlying lung mass with likely post obstructive pneumonia ,advanced COPD, fraility and hydropneumothorax that patient is not a candidate for intubation and will be difficult to come out of ventilator, and medical intervention may prolong her suffering, son agreed for DNR DNI will admit patient on high-flow oxygen for treatment of acute worsening COPD exacerbation due to underlying post obstructive pneumonia and hydropneumothorax.. 82yo F with end-stage COPD, and recurrent SHANNAN malignancy after prior radiation who presented with hypoxia and was found to have post-obstructive PNA with secondary spontaneous hydropneumothorax with acute hypoxic and hypercarbic respiratory failure. Pulmonology was consulted and in light of extremely poor prognosis, she was transitioned to [employer] care in the hospital. She without apparent distress on 05/04/23 at 11:14. Additional Data Confirmation of as documented by pronouncing clinician: no pulse, no respirations, no heart sounds and pupils fixed and dilated Family: at bedside Additional persons at bedside: design project manager Attending physician: Ebony Mckenna MD Was code activated?: No Autopsy requested?: No driver examiner notified?: No
== END 2023-05-04 11:14 | disposition expired | DRG 871 ==
LOC: HO.ED 18:19 → HO.EDOVER 18:28 → HO.IMC 05-01 00:01
PROVIDERS: Hospitalist; Nurse Practitioner Family; Registered Nurse Community Health; Admitting Provider Student in an Organized Health Care Education/Training Program; Emergency Provider Student in an Organized Health Care Education/Training Program; Visit Provider Family Medicine
DX: A41.9 Sepsis, unspecified organism (principal); J96.21 Acute and chronic respiratory failure with hypoxia; J96.22 Acute and chronic respiratory failure with hypercapnia; E44.0 Moderate protein-calorie malnutrition; Z68.1 Body mass index [BMI] 19.9 or less, adult; E87.21 Acute metabolic acidosis; J93.12 Secondary spontaneous pneumothorax; C34.12 Malignant neoplasm of upper lobe, left bronchus or lung; J98.09 Other diseases of bronchus, not elsewhere classified; Z51.5 Encounter for palliative care; J43.9 Emphysema, unspecified; Z66 Do not resuscitate; Z20.822 Contact with and (suspected) exposure to COVID-19; Z87.891 Personal history of nicotine dependence; Z79.82 Long term (current) use of aspirin; Z79.899 Other long term (current) drug therapy
CPT/HCPCS: 0241U; 36415; 36600; 71045; 71250; 80048; 80053; 82803; 83605; 83690; 83735; 83880; 84484; 85025; 85027; 85610; 87040; 93005; 94640; 99285; J0696; J1650; J2060; J2270; J2543; J2920; J2930; J3010

== ENCOUNTER → 2023-04-30 09:27 | Outpatient (BNV) | payer MEDICARE, OTHER, SELFPAY | PROVIDERS: Admitting Provider Student in an Organized Health Care Education/Training Program; Emergency Provider Student in an Organized Health Care Education/Training Program; Visit Provider Internal Medicine Cardiovascular Disease | DX: R00.0 Tachycardia, unspecified (principal); R06.02 Shortness of breath; I45.81 Long QT syndrome | CPT/HCPCS: 93010 ==

== ENCOUNTER → 2023-04-30 18:18 | Outpatient (BNV) | payer MEDICARE, OTHER, SELFPAY | PROVIDERS: Admitting Provider Student in an Organized Health Care Education/Training Program; Emergency Provider Student in an Organized Health Care Education/Training Program; Visit Provider Hospitalist | DX: J93.12 Secondary spontaneous pneumothorax (principal); J96.02 Acute respiratory failure with hypercapnia; J18.1 Lobar pneumonia, unspecified organism; J94.8 Other specified pleural conditions; J44.1 Chronic obstructive pulmonary disease with (acute) exacerbation; Z85.118 Personal history of other malignant neoplasm of bronchus and lung | CPT/HCPCS: 99223; 99233 ==

== ENCOUNTER → 2023-04-30 18:18 | Outpatient (BNV) | payer MEDICARE, OTHER, SELFPAY | PROVIDERS: Admitting Provider Student in an Organized Health Care Education/Training Program; Emergency Provider Student in an Organized Health Care Education/Training Program; Visit Provider Surgery | DX: J93.12 Secondary spontaneous pneumothorax (principal); J96.02 Acute respiratory failure with hypercapnia; J18.1 Lobar pneumonia, unspecified organism; J94.8 Other specified pleural conditions; J44.1 Chronic obstructive pulmonary disease with (acute) exacerbation | CPT/HCPCS: 99223 ==

== ENCOUNTER → 2023-04-30 18:18 | Outpatient (BNV) | payer MEDICARE, OTHER, SELFPAY | PROVIDERS: Admitting Provider Student in an Organized Health Care Education/Training Program; Emergency Provider Student in an Organized Health Care Education/Training Program; Visit Provider Hospitalist | DX: C34.90 Malignant neoplasm of unspecified part of unspecified bronchus or lung (principal); J18.9 Pneumonia, unspecified organism; J93.12 Secondary spontaneous pneumothorax; J44.9 Chronic obstructive pulmonary disease, unspecified; J96.02 Acute respiratory failure with hypercapnia; J18.1 Lobar pneumonia, unspecified organism; J94.8 Other specified pleural conditions | CPT/HCPCS: 99223; 99232; 99233; 99239; 99499 ==